=== PATIENT | female | born 1950 | race Caucasian/White ===

== ENCOUNTER 2017-02-20 11:22 | Inpatient (IN) | payer MEDICARE, OTHER ==
[~2017-02-20] VITALS: Ht 152.4 cm; Wt 64.0 kg
[~2017-02-20 11:22] MED LIST: ALPRAZOLAM ER0.5 MG PO; ATENOLOL50 MG PO; CIPROFLOXACIN500 M1 PO; CLONIDINE0.1 MG PO; DEPO-MEDROL40 MG/ML IJ; DOXYCYC MONO100 M1 PO; DULERA1 AE1 IN; LISINOPRIL20 M1 PO; LORTAB 5-325 MG1 TAB PO; MEDDOSEPAK PO; MELOXICAM15 MG PO; METRONIDAZOL500 MG PO; NEURONTIN300 MG PO; OXYCODONE5 M1 PO; PROTONIX40 MG PO; VITAMIN B-12100 MCG PO; VITAMIN D400 UNI1 PO
[2017-02-20 11:40] VITALS: BP 93/58
[2017-02-20 13:47] LABS: HEMATOCRIT 27.8 % (37.0-47.0); HEMOGLOBIN 9.8 g/dl (12.0-16.0); MEAN CELL VOLUME 94.2 fL CALC (80.0-100.0); MEAN CORPUSCULAR HGB 33.2 pG CALC (26.0-32.0); MEAN CORPUSCULAR HGB CONC 35.3 g/L CALC (32.0-36.0); RED BLOOD COUNT 2.95 mill/uL (4.20-5.60); RED CELL DISTRI WIDTH 16.1 % (11.5-15.5)
[2017-02-20 13:56] LABS: ALBUMIN 3.1 g/dL (3.2-5.0); ALKALINE PHOSPHATASE 67 u/l (38-126); ANION GAP 18 (6-22 (CALC)); BILIRUBIN, TOTAL 0.9 mg/dL (0.0-1.4); BUN 25 mg/dL (8-23); BUN/CREATININE RATIO 26 (12-20 (CALC)); CALCIUM 8.7 mg/dL (8.4-10.2); CARBON DIOXIDE 26 mmol/l (22-30); CHLORIDE 85 mmol/l (95-108); GFR 55 ML/MIN (>=60 (CALC)); GFR FOR AFR.AMER. > 60 ML/MIN (>=60 (CALC)); GLUCOSE 122 mg/dL (82-115); POTASSIUM 4.6 mmol/l (3.5-5.1); SGOT/AST 22 u/l (9-36); SGPT/ALT 32 u/l (11-66); SODIUM 123 mmol/l (137-146); TOTAL PROTEIN 6.1 g/dL (6.3-8.2)
[2017-02-20 15:41] VITALS: BP 99/51
[2017-02-20 19:05] VITALS: BP 95/61
[2017-02-21] VITALS (15 sets, daily range): BP systolic 81–135; BP diastolic 48–78
[2017-02-21 06:23] LABS: HEMATOCRIT 24.2 % (37.0-47.0); HEMOGLOBIN 8.6 g/dl (12.0-16.0); IMMATURE GRANULOCYTES 1.3 % (0.0-1.0); MEAN CELL VOLUME 93.1 fL CALC (80.0-100.0); MEAN CORPUSCULAR HGB 33.1 pG CALC (26.0-32.0); MEAN CORPUSCULAR HGB CONC 35.5 g/L CALC (32.0-36.0); RED BLOOD COUNT 2.6 mill/uL (4.20-5.60)
[2017-02-21 06:33] LABS: ALBUMIN 2.2 g/dL (3.2-5.0); ALKALINE PHOSPHATASE 57 u/l (38-126); ANION GAP 13 (6-22 (CALC)); BILIRUBIN, TOTAL 0.6 mg/dL (0.0-1.4); BUN 21 mg/dL (8-23); BUN/CREATININE RATIO 22 (12-20 (CALC)); CALCIUM 8.1 mg/dL (8.4-10.2); CARBON DIOXIDE 27 mmol/l (22-30); CHLORIDE 92 mmol/l (95-108); CREATININE 0.9 mg/dL (0.5-1.0); GFR > 60 ML/MIN (>=60 (CALC)); GFR FOR AFR.AMER. > 60 ML/MIN (>=60 (CALC)); GLUCOSE 113 mg/dL (82-115); POTASSIUM 4.5 mmol/l (3.5-5.1); SGOT/AST 15 u/l (9-36); SGPT/ALT 28 u/l (11-66); SODIUM 127 mmol/l (137-146); TOTAL PROTEIN 4.5 g/dL (6.3-8.2)
[2017-02-21 11:42] LABS: ANION GAP 16 (6-22 (CALC)); BUN 19 mg/dL (8-23); BUN/CREATININE RATIO 23 (12-20 (CALC)); CALCIUM 8.7 mg/dL (8.4-10.2); CARBON DIOXIDE 24 mmol/l (22-30); CHLORIDE 93 mmol/l (95-108); CREATININE 0.8 mg/dL (0.5-1.0); GFR > 60 ML/MIN (>=60 (CALC)); GFR FOR AFR.AMER. > 60 ML/MIN (>=60 (CALC)); GLUCOSE 125 mg/dL (82-115); POTASSIUM 4.2 mmol/l (3.5-5.1); SODIUM 129 mmol/l (137-146)
[2017-02-21 16:17] LABS: ALBUMIN 2.7 g/dL (3.2-5.0); BUN 19 mg/dL (8-23); CALCIUM 8.8 mg/dL (8.4-10.2); CARBON DIOXIDE 22 mmol/l (22-30); CHLORIDE 93 mmol/l (95-108); CREATININE 0.8 mg/dL (0.5-1.0); GFR > 60 ML/MIN (>=60 (CALC)); GFR FOR AFR.AMER. > 60 ML/MIN (>=60 (CALC)); GLUCOSE 127 mg/dL (82-115); POTASSIUM 4.2 mmol/l (3.5-5.1); SODIUM 128 mmol/l (137-146)
[2017-02-21 19:22] LABS: HEMATOCRIT 23.4 % (37.0-47.0); IMMATURE GRANULOCYTES 1.1 % (0.0-1.0); MEAN CELL VOLUME 96.7 fL CALC (80.0-100.0); MEAN CORPUSCULAR HGB 33.1 pG CALC (26.0-32.0); MEAN CORPUSCULAR HGB CONC 34.2 g/L CALC (32.0-36.0); RED BLOOD COUNT 2.42 mill/uL (4.20-5.60); RED CELL DISTRI WIDTH 16.5 % (11.5-15.5)
[2017-02-22] VITALS (13 sets, daily range): BP systolic 81–131; BP diastolic 40–86
[2017-02-22 05:04] LABS: HEMATOCRIT 21.3 % (37.0-47.0); IMMATURE GRANULOCYTES 1.9 % (0.0-1.0); MEAN CELL VOLUME 95.9 fL CALC (80.0-100.0); MEAN CORPUSCULAR HGB 33.3 pG CALC (26.0-32.0); MEAN CORPUSCULAR HGB CONC 34.7 g/L CALC (32.0-36.0); NEUT# 7.17 thou/uL (2.00-7.15); RED BLOOD COUNT 2.22 mill/uL (4.20-5.60); RED CELL DISTRI WIDTH 16.7 % (11.5-15.5)
[2017-02-22 05:08] LABS: HEMOGLOBIN 7.4 g/dl (12.0-16.0)
[2017-02-22 05:23] LABS: ANION GAP 12 (6-22 (CALC)); BUN 10 mg/dL (8-23); BUN/CREATININE RATIO 15 (12-20 (CALC)); CALCIUM 7.6 mg/dL (8.4-10.2); CARBON DIOXIDE 22 mmol/l (22-30); CREATININE 0.7 mg/dL (0.5-1.0); GFR > 60 ML/MIN (>=60 (CALC)); GFR FOR AFR.AMER. > 60 ML/MIN (>=60 (CALC)); GLUCOSE 110 mg/dL (82-115); SODIUM 134 mmol/l (137-146)
[2017-02-22 05:25] LABS: CHLORIDE 104 mmol/l (95-108)
[2017-02-22 08:40] LABS: MAGNESIUM 1.2 mg/dL (1.6-2.3)
[2017-02-22] MEDS ORDERED: LISINOPRIL10 M1 PO (15:06)
[2017-02-22] MEDS ORDERED: PERCOCET 5/321 COMBO PO (15:08)
[2017-02-23] VITALS (12 sets, daily range): BP systolic 75–160; BP diastolic 46–83
[2017-02-23 04:40] LABS: MEAN CELL VOLUME 96.8 fL CALC (80.0-100.0); MEAN CORPUSCULAR HGB 32.3 pG CALC (26.0-32.0); MEAN CORPUSCULAR HGB CONC 33.3 g/L CALC (32.0-36.0); RED BLOOD COUNT 2.48 mill/uL (4.20-5.60); RED CELL DISTRI WIDTH 17.2 % (11.5-15.5)
[2017-02-23 04:53] LABS: ANION GAP 11 (6-22 (CALC)); BUN 7 mg/dL (8-23); BUN/CREATININE RATIO 10 (12-20 (CALC)); CALCIUM 7.7 mg/dL (8.4-10.2); CARBON DIOXIDE 20 mmol/l (22-30); CHLORIDE 106 mmol/l (95-108); CREATININE 0.7 mg/dL (0.5-1.0); GFR > 60 ML/MIN (>=60 (CALC)); GFR FOR AFR.AMER. > 60 ML/MIN (>=60 (CALC)); GLUCOSE 104 mg/dL (82-115); MAGNESIUM 1.2 mg/dL (1.6-2.3); POTASSIUM 3.9 mmol/l (3.5-5.1); SODIUM 134 mmol/l (137-146)
[2017-02-24 00:07] VITALS: BP 128/75
[2017-02-24 05:30] VITALS: BP 137/81
[2017-02-24 07:07] LABS: HEMATOCRIT 25.3 % (37.0-47.0); HEMOGLOBIN 8.8 g/dl (12.0-16.0); IMMATURE GRANULOCYTES 2.4 % (0.0-1.0); MEAN CELL VOLUME 95.8 fL CALC (80.0-100.0); MEAN CORPUSCULAR HGB 33.3 pG CALC (26.0-32.0); MEAN CORPUSCULAR HGB CONC 34.8 g/L CALC (32.0-36.0); NEUT# 7.93 thou/uL (2.00-7.15); RED BLOOD COUNT 2.64 mill/uL (4.20-5.60); RED CELL DISTRI WIDTH 16.9 % (11.5-15.5)
[2017-02-24 07:33] LABS: ANION GAP 13 (6-22 (CALC)); BUN 6 mg/dL (8-23); BUN/CREATININE RATIO 9 (12-20 (CALC)); CALCIUM 8.1 mg/dL (8.4-10.2); CARBON DIOXIDE 20 mmol/l (22-30); CHLORIDE 107 mmol/l (95-108); CREATININE 0.7 mg/dL (0.5-1.0); GFR > 60 ML/MIN (>=60 (CALC)); GFR FOR AFR.AMER. > 60 ML/MIN (>=60 (CALC)); GLUCOSE 115 mg/dL (82-115); POTASSIUM 3.9 mmol/l (3.5-5.1); SODIUM 136 mmol/l (137-146)
[2017-02-24 11:20] VITALS: BP 147/79
[2017-02-24 15:05] VITALS: BP 159/65
[2017-02-24 18:59] VITALS: BP 164/79
[2017-02-24 23:51] VITALS: BP 136/74
[2017-02-25 05:24] VITALS: BP 134/70
[2017-02-25 05:48] LABS: HEMATOCRIT 24.3 % (37.0-47.0); HEMOGLOBIN 8.4 g/dl (12.0-16.0); IMMATURE GRANULOCYTES 1.7 % (0.0-1.0); MEAN CELL VOLUME 94.2 fL CALC (80.0-100.0); MEAN CORPUSCULAR HGB 32.6 pG CALC (26.0-32.0); MEAN CORPUSCULAR HGB CONC 34.6 g/L CALC (32.0-36.0); NEUT# 9.63 thou/uL (2.00-7.15); RED BLOOD COUNT 2.58 mill/uL (4.20-5.60); RED CELL DISTRI WIDTH 16.8 % (11.5-15.5)
[2017-02-25 06:16] LABS: ANION GAP 12 (6-22 (CALC)); BUN 6 mg/dL (8-23); BUN/CREATININE RATIO 9 (12-20 (CALC)); CALCIUM 8.1 mg/dL (8.4-10.2); CARBON DIOXIDE 24 mmol/l (22-30); CHLORIDE 102 mmol/l (95-108); CREATININE 0.7 mg/dL (0.5-1.0); GFR > 60 ML/MIN (>=60 (CALC)); GFR FOR AFR.AMER. > 60 ML/MIN (>=60 (CALC)); GLUCOSE 120 mg/dL (82-115); MAGNESIUM 1.2 mg/dL (1.6-2.3); POTASSIUM 3.6 mmol/l (3.5-5.1); SODIUM 135 mmol/l (137-146)
[2017-02-25 07:45] VITALS: BP 141/82
[2017-02-25 11:10] VITALS: BP 129/75
[2017-02-25 15:51] VITALS: BP 145/77
[2017-02-25 19:00] VITALS: BP 179/89
[2017-02-25 20:36] LABS: URINE BILIRUBIN - DIPSTICK NEGATIVE (NEGATIVE); URINE BLOOD DIPSTICK TRACE-INTACT (NEGATIVE); URINE COLOR YELLOW; URINE GLUCOSE - DIPSTICK NEGATIVE (NEGATIVE); URINE KETONE NEGATIVE (NEGATIVE); URINE LEUK ESTERASE NEGATIVE (NEGATIVE); URINE NITRITE - DIPSTICK NEGATIVE (Negative); URINE PROTEIN - DIPSTICK NEGATIVE (NEG-TRACE); URINE SPECIFIC GRAVITY 1.015; URINE UROBILINOGEN - DIPSTICK 0.2 E.U./dL (0.2)
[2017-02-25 20:37] LABS: URINE CLARITY CLEAR
[2017-02-26 00:53] VITALS: BP 166/69
[2017-02-26 04:49] VITALS: BP 157/90
[2017-02-26 07:55] VITALS: BP 157/74
[2017-02-26 11:00] VITALS: BP 126/71
[2017-02-26] MEDS ORDERED: ROCEPHIN 2 GM2 GM IV (14:04)
[2017-02-26] MEDS ORDERED: PROTONIX40 M2 PO (14:04)
[2017-02-26] MEDS ORDERED: LASIX 20 MG TAB20 MG PO (14:04)
[2017-02-26] MEDS ORDERED: PERCOCET 5/321 COMBO PO (14:04)
[2017-02-26] MEDS ORDERED: FLORASTOR250 M1 PO (14:04)
[2017-02-26 15:20] VITALS: BP 147/72
[2017-02-27 04:45] VITALS: BP 157/79
[2017-02-27 06:27] LABS: HEMATOCRIT 25.2 % (37.0-47.0); MEAN CELL VOLUME 91.3 fL CALC (80.0-100.0); MEAN CORPUSCULAR HGB 32.6 pG CALC (26.0-32.0); MEAN CORPUSCULAR HGB CONC 35.7 g/L CALC (32.0-36.0); RED BLOOD COUNT 2.76 mill/uL (4.20-5.60); RED CELL DISTRI WIDTH 16.7 % (11.5-15.5)
[2017-02-27 06:46] LABS: ANION GAP 11 (6-22 (CALC)); BUN 6 mg/dL (8-23); BUN/CREATININE RATIO 11 (12-20 (CALC)); CALCIUM 8.3 mg/dL (8.4-10.2); CARBON DIOXIDE 30 mmol/l (22-30); CHLORIDE 98 mmol/l (95-108); CREATININE 0.6 mg/dL (0.5-1.0); GFR > 60 ML/MIN (>=60 (CALC)); GFR FOR AFR.AMER. > 60 ML/MIN (>=60 (CALC)); GLUCOSE 108 mg/dL (82-115); MAGNESIUM 1.8 mg/dL (1.6-2.3); POTASSIUM 3.3 mmol/l (3.5-5.1); SODIUM 136 mmol/l (137-146)
== END 2017-02-27 07:10 | disposition home health service (06) | DRG 908 ==
LOC: MS2 11:22 → ICU 11:22 → MS2 02-21 15:28 → ICU 02-21 15:28 → MS2 02-23 13:01 → ICU 02-23 13:16 → MS2 02-23 13:16
PROVIDERS: Internal Medicine; Nurse Practitioner Family; ADMIT Surgery; ATTEND Internal Medicine
PROC: 0WPF0JZ Removal of Synthetic Substitute from Abdominal Wall, Open Approach (ICD-10-PCS; principal; 2017-02-21)
PROC: 02HV33Z Insertion of Infusion Device into Superior Vena Cava, Percutaneous Approach (ICD-10-PCS; 2017-02-25)
PROC: B518ZZA Fluoroscopy of Superior Vena Cava, Guidance (ICD-10-PCS; 2017-02-25)
DX: T81.31XA Disruption of external operation (surgical) wound, not elsewhere classified, initial encounter (principal); T85.79XA Infection and inflammatory reaction due to other internal prosthetic devices, implants and grafts, initial encounter; I95.9 Hypotension, unspecified; E87.1 Hypo-osmolality and hyponatremia; E87.70 Fluid overload, unspecified; D62 Acute posthemorrhagic anemia; E83.42 Hypomagnesemia; I10 Essential (primary) hypertension; J44.9 Chronic obstructive pulmonary disease, unspecified; R00.0 Tachycardia, unspecified; F17.210 Nicotine dependence, cigarettes, uncomplicated; E86.1 Hypovolemia; Y83.2 Surgical operation with anastomosis, bypass or graft as the cause of abnormal reaction of the patient, or of later complication, without mention of misadventure at the time of the procedure; Z87.11 Personal history of peptic ulcer disease
CPT/HCPCS: J1650; J3475; Q9967; S0164

== ENCOUNTER 2017-02-28 18:03 | Observation (INO) | payer MEDICARE, OTHER ==
[~2017-02-28] VITALS: Ht 152.4 cm; Wt 56.5 kg
[~2017-02-28 18:03] MED LIST changes: +FLORASTOR250 M1 PO; +LASIX 20 MG TAB20 MG PO; +LISINOPRIL10 M1 PO; +PERCOCET 5/321 COMBO PO; +PROTONIX40 M2 PO; +ROCEPHIN 2 GM2 GM IV
--- NOTE | 2017-02-28 18:16 | NUR ---
PT TO ROOM PER W/C
--- NOTE | 2017-02-28 18:30 | NUR ---
INTRODUCED SELF TO PT. PT REPORTS SOB AND EDEMA STARTING 2 DAYS PRIOR. PATIENT IS ON HOME ABX FOR INFECTED HERNIA REPAIR. 2 CHRISTIANO DRAINS NOTED, MINIMAL WHITE DRAINAGE NOTED IN DRAIN. 3+ BILATERAL LEG AND FEET EDEMA NOTED. LS COURSE WITH WHEEZES NOTED BILATERALY. MD AT BEDSIDE. PATIENT UNSURE OF WHAT HOME ABX SHE IS TAKING. DOUBLE LUMEN PICC NOTED TO THE RIGHT AC GOOD BLOOD RETURN NOTED. LABS COLLECTED. PATIENT AWARE OF PLAN OF CARE AND WAIT TIME. CALL ERVIN WITHINR REACH, WILL CONTINUE TO MONITOR.
[2017-02-28 18:48] LABS: HEMATOCRIT 27.9 % (37.0-47.0); HEMOGLOBIN 9.4 g/dl (12.0-16.0); IMMATURE GRANULOCYTES 1.2 % (0.0-1.0); MEAN CELL VOLUME 96.5 fL CALC (80.0-100.0); MEAN CORPUSCULAR HGB 32.5 pG CALC (26.0-32.0); MEAN CORPUSCULAR HGB CONC 33.7 g/L CALC (32.0-36.0); NEUT# 8.2 thou/uL (2.00-7.15); RED BLOOD COUNT 2.89 mill/uL (4.20-5.60); RED CELL DISTRI WIDTH 17.9 % (11.5-15.5)
--- NOTE | 2017-02-28 18:55 | NUR ---
REPORT GIVEN TO ANI SANTOYO.
--- NOTE | 2017-02-28 19:00 | NUR ---
RECEIVED REPORT FROM KATLYN LAW. IN ROOM INTRODUCED SELF TO PT. NO C/O AT THIS TIME.
[2017-02-28 19:02] LABS: ALBUMIN 3.2 g/dL (3.2-5.0); ALKALINE PHOSPHATASE 62 u/l (38-126); ANION GAP 18 (6-22 (CALC)); BILIRUBIN, TOTAL 0.7 mg/dL (0.0-1.4); BUN 9 mg/dL (8-23); BUN/CREATININE RATIO 14 (12-20 (CALC)); CALCIUM 8.8 mg/dL (8.4-10.2); CARBON DIOXIDE 28 mmol/l (22-30); CHLORIDE 96 mmol/l (95-108); CREATININE 0.6 mg/dL (0.5-1.0); GFR > 60 ML/MIN (>=60 (CALC)); GFR FOR AFR.AMER. > 60 ML/MIN (>=60 (CALC)); GLUCOSE 108 mg/dL (82-115); POTASSIUM 4.2 mmol/l (3.5-5.1); SGOT/AST 29 u/l (9-36); SGPT/ALT 28 u/l (11-66); SODIUM 137 mmol/l (137-146); TOTAL PROTEIN 6.2 g/dL (6.3-8.2)
--- NOTE | 2017-02-28 19:06 | NUR ---
IV LASIX GIVEN PER MD ORDER.
[2017-02-28 19:08] LABS: INTERNATIONAL NORMALIZED RATIO 1.1 RATIO (0.7-1.3); PROTHROMBIN TIME 11.9 SECONDS (9.0-12.5)
[2017-02-28 19:14] LABS: MYOGLOBIN 122 ng/mL (0 - 62)
--- NOTE | 2017-02-28 19:15 | NUR ---
pt. has 2 andie's that are not compressed. pt. refused to let me compress them stating. they aren't suppose to be compressed.
--- NOTE | 2017-02-28 20:06 | NUR ---
OOB TO BSC CHIAR, VOIDING QS GINNA URINE. NO C/O PAIN OR DISCOMFORT OFFERED.
[2017-02-28 20:08] LABS: URINE BILIRUBIN - DIPSTICK NEGATIVE (NEGATIVE); URINE BLOOD DIPSTICK NEGATIVE (NEGATIVE); URINE COLOR YELLOW; URINE GLUCOSE - DIPSTICK NEGATIVE (NEGATIVE); URINE KETONE NEGATIVE (NEGATIVE); URINE LEUK ESTERASE NEGATIVE (NEGATIVE); URINE NITRITE - DIPSTICK NEGATIVE (Negative); URINE PH 5.5 (4.5-8.0); URINE PROTEIN - DIPSTICK NEGATIVE (NEG-TRACE); URINE UROBILINOGEN - DIPSTICK 0.2 E.U./dL (0.2)
[2017-02-28 20:17] LABS: URINE CLARITY CLEAR
--- NOTE | 2017-02-28 21:06 | NUR ---
IN ROOM TO DISCUSS CLINICAL FINDINGS WITH PT. AND ALSO MAKE HER AWARE OF ADMISSION.
--- NOTE | 2017-02-28 22:15 | NUR ---
REPORT GIVEN TO MARIA ISABEL WATTERS.
[2017-02-28 22:30] VITALS: BP 153/80
--- NOTE | 2017-02-28 22:30 | NUR ---
pt. [place] [facility] [place], no c/o.
--- NOTE | 2017-02-28 22:30 | NUR ---
RECEIVED FROM ER VIA STRETCHER ACCOMPANIED BY DENISE LAW, OUT OF STRETCHER TO BATHROOM WITH STEADY GAIT STAFF AT PT SIDE. A/O X3, RESPIRATIONS EVEN AND UNLABORED, LUNG SOUNDS WHEEZY, VOIDING CLEAR YELLOW URINE THEN BACK TO BED. DUBLE LUMEN PICC LINE TO VALENTINE. ABDOMINAL DRESSING REMOVED, MIDLINE INCISION MEASURING 9INCHES LONG WITH SUTURES, PURULENT DRAINING NOTICED WITH SOME UNDERMINING, PICTURE TAKEN AND PLACED ON CHART, COVERED WITH DRY DRESSING. TWO CHRISTIANO DRAINS #1 TO RLQ, #2 TO LLQ, DRAINING WHITE LIQUID, TEACHING DONE WITH PT REGARDING SUCTION OF THE CHRISTIANO, VOICES UNDERSTANDING. C/O ABDOMINAL PAIN /10 MEDICATED WITH PERCOCET, SONATA ALSO GIVEN PER PT REQUEST. ORIENTED TO BED CONTROLS AND CALL LIGHT.
[2017-03-01 03:55] VITALS: BP 150/61
--- NOTE | 2017-03-01 04:08 | NUR ---
OOB TO BATHROOM USING WALKER, C/O ABDOMINAL PAIN 10/19, MEDICATED WITH PERCOCET.
[2017-03-01 05:38] LABS: ANION GAP 19 (6-22 (CALC)); BUN 10 mg/dL (8-23); BUN/CREATININE RATIO 15 (12-20 (CALC)); CALCIUM 8.7 mg/dL (8.4-10.2); CARBON DIOXIDE 27 mmol/l (22-30); CHLORIDE 93 mmol/l (95-108); CREATININE 0.6 mg/dL (0.5-1.0); GFR > 60 ML/MIN (>=60 (CALC)); GFR FOR AFR.AMER. > 60 ML/MIN (>=60 (CALC)); GLUCOSE 122 mg/dL (82-115); MAGNESIUM 1.2 mg/dL (1.6-2.3); POTASSIUM 4.6 mmol/l (3.5-5.1); SODIUM 134 mmol/l (137-146)
--- NOTE | 2017-03-01 07:25 | NUR ---
PT.IN BED, AWAKENED TO US ENTERING ROOM, BS REPORT RECEIVED FROM NIGHT NURSE. DENIES ANY NEEDS AT THIS TIME, CALL LIGHT W/IN REACH
[2017-03-01 07:37] VITALS: BP 144/78
--- NOTE | 2017-03-01 10:35 | NUR ---
PT. IN BED WATCHING TV AND TALKING ON PHONE. PT.MEDICATED W/MORNING MEDICATIONS AND FOR PAIN 10/19. PT.SOLU-MEDROL, ANTIBIOTIC THERAPAY AND MAGNESIUM SULF. WERE HELD DUE TO PLACEMENT CONFIRMATION XRAY NEEDED FOR PICC. PT.REQUESTED RESPIRATORY TREATMENT/DOES NOT SOUND DISTRESSED AT THIS TIME, RESPIRATORY HAS BEEN NOTIFIED AT THIS TIME. PT.PROVIDED W/KLEENEX REQUESTED. DENIES ANY OTHER NEEDS AT THIS TIME, CALL LIGHT W/IN REACH
[2017-03-01 10:55] VITALS: BP 137/83
--- NOTE | 2017-03-01 11:36 | NUR ---
XRAY CALLED VINNY REPORTING FOR LAVINIA STATING THAT XRAY HAD BEEN COMPLETED TO CHECK FOR PLACEMENT OF PICC AND REPORT SHOWS TIP AT [facility]. REPORTS THAT IT IS USABLE W/THIS PLACEMENT.
--- NOTE | 2017-03-01 14:35 | NUR ---
PT.CALLED TO REPORT THAT HER RIGHT CHRISTIANO DRAIN HAS "COME OUT." UPON ENTERING ROOM, PT.IS SITTING ON SIDE OF BED HOLDING DRAIN TUBING IN HAND. TUBING IS COMPLETELY OUT AND BULB EMPTIED OF 5CC OF DRAINAGE. NO DRAINAGE IN LEFT DRAIN BULB. DR. TRAN HAS BEEN NOTIFIED AND REPORTED THAT HE REPORTED DRAIN DISLODGE TO .
[2017-03-01 15:05] VITALS: BP 131/64
--- NOTE | 2017-03-01 16:09 | NUR ---
Attempted to speak to patient about current medications and side-effects. Patient interrupted while trying to go over side-effects and stated that she has heard this before as she was discharged the day before and is back again to [facility]. Patient asked if she needs to continue taking the medications she was discharged with yesterday. Informed patient that all her home medications are being continued at the hospital and upon discarge the doctor may change or discontinue some of her medications. I told her if there were any changes, I will be back tomorrow to go over them with her. She said as long as the doctor gives her a script, I do not need to come back to talk to her.
[2017-03-01 19:30] VITALS: BP 132/65
--- NOTE | 2017-03-01 19:40 | NUR ---
pt awake in bed; no distress noted; assessment completed at this time; pt alert and oriented; admits to abd pain/ medicated as per orders; no n/v noted; resp even and unlabored; pt with complaints of sob/no resp distress noted; lungs clear/diminished bases; skin color wnl; o2 per nc; hr reg; wk pedal pulses; 3+ edema noted to ble; tele monitor intact; abd soft with bs present; no bm noted per financial underwriter; pt admits to voiding without complication; no urine to inspect at this time; dual lumen picc line intact to janet; no redness or edema ntoed at site; picc dressing cdi; dressing noted intact to abd incision and andie sites; scant serous shadowing noted to dressing; andie intact to left abd with scant thick pale pink drainage; bulb charged but will not hold suction; discoloration noted to ble/feet; plan of care/pm meds explained; call light within reach; will continue to monitor
--- NOTE | 2017-03-01 20:26 | NUR ---
awake in bed; admits to pain relief; pm meds explained; pt medicated per orders; andie stripped; andie drain noted to NOT hold suction; bulb reinforced with no change in suction; scant amount of thick pale pink drainage noted; will continue to monitor
--- NOTE | 2017-03-01 23:38 | NUR ---
awake; complaints of abd pain; medicated with percocet as per orders; dressing to andie site reinfornced d/t leakage around insertion site; picc intact; tele monitor inplace; call light within reach; will continue to monitor
--- NOTE | 2017-03-02 00:10 | NUR ---
awake in bed; offers no complaints/needs; lungs noted with exp wheezing; call light within reach; will continue to monitor
[2017-03-02 00:14] VITALS: BP 108/62
--- NOTE | 2017-03-02 03:27 | NUR ---
awake; assisted to bathroom; pt with complaints of itching around abd dressing; no redness or rash noted; complaints of abd pain; will medicate as per orders; will continue to monitor
--- NOTE | 2017-03-02 03:53 | NUR ---
awake in bed; repositioned per staff for comfort; no distress noted; o2 per nc; picc intact; CHRISTIANO emptied for 4cc; no odor noted to CHRISTIANO drainage; dressings cdi to abd; call light within reach; will continue to monitor
[2017-03-02 04:00] VITALS: BP 131/66
--- NOTE | 2017-03-02 04:44 | NUR ---
am labs per picc; flushed and heparinized per protocol
--- NOTE | 2017-03-02 05:52 | NUR ---
pt awake sitting on side of bed receiving neb tx; no distress noted; pt offers no complaints; iv intact; o2 per nc; tele monitor in place; bed in lowest position; call light within reach
[2017-03-02 06:08] LABS: HEMATOCRIT 22.2 % (37.0-47.0); HEMOGLOBIN 7.9 g/dl (12.0-16.0); MEAN CELL VOLUME 93.3 fL CALC (80.0-100.0); MEAN CORPUSCULAR HGB 33.2 pG CALC (26.0-32.0); MEAN CORPUSCULAR HGB CONC 35.6 g/L CALC (32.0-36.0); RED BLOOD COUNT 2.38 mill/uL (4.20-5.60); RED CELL DISTRI WIDTH 17.9 % (11.5-15.5)
[2017-03-02 06:24] LABS: ANION GAP 12 (6-22 (CALC)); BUN 14 mg/dL (8-23); BUN/CREATININE RATIO 22 (12-20 (CALC)); CALCIUM 8.2 mg/dL (8.4-10.2); CARBON DIOXIDE 33 mmol/l (22-30); CHLORIDE 89 mmol/l (95-108); CREATININE 0.7 mg/dL (0.5-1.0); GFR > 60 ML/MIN (>=60 (CALC)); GFR FOR AFR.AMER. > 60 ML/MIN (>=60 (CALC)); GLUCOSE 145 mg/dL (82-115); SODIUM 131 mmol/l (137-146)
--- NOTE | 2017-03-02 07:15 | NUR ---
BEDSIDE REPORT RECEIVED FROM NIGHT NURSE, PT.IS UPRIGHT IN BED WATCHING TV. SHE IS REQUESTING A PAIN PILL AT THIS TIME, BUT IT IS TOO SOON TO PULL IT AT THIS TIME. I WILL FOLLOW-UP WITH PAIN MEDICATION WHEN AVAILABLE. CALL LIGHT IS W/IN REACH AND PT IS ADVISED TO CALL IF ANY NEEDS ARISE.
[2017-03-02 08:01] VITALS: BP 123/70
--- NOTE | 2017-03-02 08:10 | NUR ---
PT.MEDICATED W/MORNING MEDICATIONS AND IV ANTIBIOTIC THERAPY ADMINISTERD AT THIS TIME. PT.IS UPRIGHT IN RECLINER W/FEET ELEVATED. SHE REPORTS THAT HER LOWER EXTREMETY EDEMA IS MUCH IMPROVED IF SHE KEEPS HER FEET ELEVATED. PT.MEDICATED W/LASIX AND SOLU-MEDROL AT THIS TIME ASLO. CALL LIGHT IS W/IN REACH AND PT.HAS BEEN INSRUCTED TO CALL FOR ASSISTANCE NEEDED.
[2017-03-02 11:05] VITALS: BP 135/68
[2017-03-02] MEDS ORDERED: IPRATROPIU0.5 MG/3 M NEB (11:42)
[2017-03-02] MEDS ORDERED: PREDNISONE10 MG PO (11:42)
[2017-03-02] MEDS ORDERED: LASIX 40 MG TAB40 MG PO (11:42)
[2017-03-02] MEDS ORDERED: KLOR-CON M2020 MEQ PO (11:52)
[2017-03-02] MEDS ORDERED: MAGNESIUM OXID400 M1 PO (11:52)
--- NOTE | 2017-03-02 12:01 | NUR ---
UPON ENTERING ROOM PT.IS IN RECLINER "READY TO MOVE," PT.HAS REQUESTED PAIN MEDICATION TWICE PREVIOUSLY SO I BROUGHT HER PERCOCET. UPON AMBULATING PT.STARTS MOVING ITEMS FROM TABLE TO BED, SHE WALKS AROUND TO THE OTHER SIDE OF THE BED AND MOVES BROWN END TABLE CLOSER TO BED. I HAVE OFFERED ASSISTANCE AND SHE STATES "NO I WANT TO DO IT." PT.THEN REPORTS HER PAIN LEVEL AT A 7/10. APPEARS TO BE 3/10. I ADVISE PT.TO LIE FLAT ON THE BED FOR WOUND CARE DRESSING CHANGE. PT.MEDICATED FOR PAIN AND DRESSING CHANGE PERFORMED. PICTURES IN CHART. R.CHRISTIANO DRAIN IS OUT, SITE APPEARS HEALTHY, MODERATE AMOUNT OF DRAINAGE FROM SITE APPEARS ON DRESSING WHEN CHANGED. L.CHRISTIANO DRAIN IS STILL INTACT W/MINIMAL DRAINAGE 1CC IN BULB, LIGHT DRAINAGE AT SITE APPEARED ON DRESSING AT DRESSING CHANGE. PT.TOLERATED DRESSING CHANGE WELL AND I BACK IN RECLINER WORKING ON [employer] PUZZLE.
--- NOTE | 2017-03-02 14:19 | NUR ---
PT.DISCHARGED FROM UNIT IN GOOD CONDITION VIA WC ACCOMPANIED BY .
== END 2017-03-02 14:19 | disposition home health service (06) ==
LOC: ED 18:03 → ED-I 21:05 → ED 21:28 → MS2 21:29
PROVIDERS: Emergency Medicine; Internal Medicine; ADMIT Internal Medicine; ATTEND Internal Medicine
DX: J44.1 Chronic obstructive pulmonary disease with (acute) exacerbation (principal); E87.70 Fluid overload, unspecified; J96.00 Acute respiratory failure, unspecified whether with hypoxia or hypercapnia; I10 Essential (primary) hypertension; F17.210 Nicotine dependence, cigarettes, uncomplicated; T85.79XA Infection and inflammatory reaction due to other internal prosthetic devices, implants and grafts, initial encounter; E83.42 Hypomagnesemia; D62 Acute posthemorrhagic anemia; F10.20 Alcohol dependence, uncomplicated; Y83.2 Surgical operation with anastomosis, bypass or graft as the cause of abnormal reaction of the patient, or of later complication, without mention of misadventure at the time of the procedure; Z87.11 Personal history of peptic ulcer disease
CPT/HCPCS: J1650; J3475

== ENCOUNTER 2017-04-11 18:42 | Emergency (ER) | payer MEDICARE, OTHER ==
[~2017-04-11] VITALS: Ht 152.4 cm; Wt 50.0 kg
[~2017-04-11 18:42] MED LIST changes: +IPRATROPIU0.5 MG/3 M NEB; +KLOR-CON M2020 MEQ PO; +LASIX 40 MG TAB40 MG PO; +MAGNESIUM OXID400 M1 PO; +PREDNISONE10 MG PO
[2017-04-11 19:28] LABS: HEMATOCRIT 33.6 % (37.0-47.0); HEMOGLOBIN 11.2 g/dl (12.0-16.0); IMMATURE GRANULOCYTES 0.8 % (0.0-1.0); MEAN CELL VOLUME 95.5 fL CALC (80.0-100.0); MEAN CORPUSCULAR HGB 31.8 pG CALC (26.0-32.0); MEAN CORPUSCULAR HGB CONC 33.3 g/L CALC (32.0-36.0); NEUT# 5.95 thou/uL (2.00-7.15); RED BLOOD COUNT 3.52 mill/uL (4.20-5.60); RED CELL DISTRI WIDTH 15.9 % (11.5-15.5)
[2017-04-11 19:47] LABS: ALBUMIN 3.7 g/dL (3.2-5.0); ALKALINE PHOSPHATASE 97 u/l (38-126); ANION GAP 18 (6-22 (CALC)); BILIRUBIN, TOTAL 0.8 mg/dL (0.0-1.4); BUN 24 mg/dL (8-23); BUN/CREATININE RATIO 32 (12-20 (CALC)); CALCIUM 10.2 mg/dL (8.4-10.2); CARBON DIOXIDE 25 mmol/l (22-30); CHLORIDE 91 mmol/l (95-108); CREATININE 0.7 mg/dL (0.5-1.0); GFR > 60 ML/MIN (>=60 (CALC)); GFR FOR AFR.AMER. > 60 ML/MIN (>=60 (CALC)); GLUCOSE 116 mg/dL (82-115); POTASSIUM 5.1 mmol/l (3.5-5.1); SGOT/AST 26 u/l (9-36); SGPT/ALT 27 u/l (11-66); SODIUM 129 mmol/l (137-146); TOTAL PROTEIN 6.3 g/dL (6.3-8.2)
[2017-04-11 19:56] LABS: URINE BILIRUBIN - DIPSTICK NEGATIVE (NEGATIVE); URINE BLOOD DIPSTICK NEGATIVE (NEGATIVE); URINE COLOR YELLOW; URINE GLUCOSE - DIPSTICK NEGATIVE (NEGATIVE); URINE KETONE NEGATIVE (NEGATIVE); URINE LEUK ESTERASE NEGATIVE (NEGATIVE); URINE NITRITE - DIPSTICK NEGATIVE (Negative); URINE PROTEIN - DIPSTICK NEGATIVE (NEG-TRACE); URINE UROBILINOGEN - DIPSTICK 0.2 E.U./dL (0.2)
[2017-04-11 19:59] LABS: MYOGLOBIN 88 ng/mL (0 - 62)
[2017-04-11 20:01] LABS: URINE CLARITY CLEAR
[2017-04-11 20:10] LABS: ACT PARTIAL THROMBO TIME 28.4 SECONDS (20.0-32.5); PROTHROMBIN TIME 11.2 SECONDS (9.0-12.5)
[2017-04-11 20:11] LABS: INFLUENZA A NONE DETECTED (NONE DETECT); INFLUENZA B NONE DETECTED (NONE DETECT)
[2017-04-11 21:58] VITALS: BP 166/72
== END 2017-04-11 21:59 | disposition short-term general hospital (02) ==
LOC: ED 18:42
PROVIDERS: Emergency Medicine
DX: J44.1 Chronic obstructive pulmonary disease with (acute) exacerbation (principal); R06.03 Acute respiratory distress; R00.0 Tachycardia, unspecified; R06.02 Shortness of breath; F17.210 Nicotine dependence, cigarettes, uncomplicated; Z72.89 Other problems related to lifestyle; Z98.890 Other specified postprocedural states

== ENCOUNTER 2017-05-26 06:11 | Day surgery (SDC) | payer MEDICARE, OTHER ==
[~2017-05-26] VITALS: Ht 152.4 cm; Wt 45.8 kg
[~2017-05-26 06:11] MED LIST changes: +BUMETANIDE0.5 MG PO; +DUONEB IN; +KLOR-CON 1010 MEQ PO; +MAG OXIDE400 MG PO; +MULTIVITAMIN GUMMIES PO; +PERCOCET1 TA4 PO; +ULTRAM50 M1 PO; +XOPENEX HF45 MCG/ACT IN
[2017-05-26] MEDS ORDERED: PERCOCET 10/31 COMBO PO (09:38)
[2017-05-26 11:19] VITALS: BP 144/72
== END 2017-05-26 11:05 | disposition home or self-care (01) ==
LOC: ORM 06:11
PROVIDERS: ATTEND Surgery
PROC: 0HR7X74 Replacement of Abdomen Skin with Autologous Tissue Substitute, Partial Thickness, External Approach (ICD-10-PCS; principal; 2017-05-26)
PROC: 0HBHXZZ Excision of Right Upper Leg Skin, External Approach (ICD-10-PCS; 2017-05-26)
DX: T81.89XA Other complications of procedures, not elsewhere classified, initial encounter (principal); Y83.2 Surgical operation with anastomosis, bypass or graft as the cause of abnormal reaction of the patient, or of later complication, without mention of misadventure at the time of the procedure
CPT/HCPCS: A6207

== ENCOUNTER 2017-06-23 06:39 | Day surgery (SDC) | payer MEDICARE, OTHER ==
[~2017-06-23 06:39] MED LIST changes: +PERCOCET 10/31 COMBO PO
[2017-06-23] MEDS ORDERED: DILAUDID2 MG PO (09:25)
[2017-06-23 11:51] VITALS: BP 152/66
== END 2017-06-23 10:15 | disposition home or self-care (01) ==
LOC: ORM 06:39
PROVIDERS: ATTEND Surgery
PROC: 0HR7X74 Replacement of Abdomen Skin with Autologous Tissue Substitute, Partial Thickness, External Approach (ICD-10-PCS; principal; 2017-06-23)
PROC: 0HBJXZZ Excision of Left Upper Leg Skin, External Approach (ICD-10-PCS; 2017-06-23)
DX: T81.89XA Other complications of procedures, not elsewhere classified, initial encounter (principal); Y83.8 Other surgical procedures as the cause of abnormal reaction of the patient, or of later complication, without mention of misadventure at the time of the procedure
CPT/HCPCS: A6207

== ENCOUNTER 2017-07-07 15:08 | Inpatient (IN) | payer MEDICARE, OTHER ==
[2017-07-07] VITALS (12 sets, daily range): BP systolic 142–176; BP diastolic 76–100
[~2017-07-07] VITALS: Ht 152.4 cm; Wt 44.0 kg
[~2017-07-07 15:08] MED LIST changes: +DILAUDID2 MG PO
--- NOTE | 2017-07-07 15:22 | NUR ---
female pt received to ICU bed 8 via wc accompanied by volunteer as direct admit; spouse accompanied pt; admission assessment completed at this time; pt c/c "can't breathe", sent by MD; weight obtained via bed scale; pt appear anxious; pt alert to person and place; confused to time; resp labored; lungs coarse with exp wheeze; moist loose cough noted/ no sputum to inspect at current; skin color wnl; o2 per nc at 2L; pt and spouse admits to home o2 but unsure of liters prescribed; hr reg; st on monitor; edema noted to ble; pedal pulses confirmed via doppler; purple/bruising noted to bilat feet/ toes; abd soft/ tender with bs present; no bm noted per leader writer; no urine to inspect at this time; bsc; #20 started in rac (per pt request) x1 attempt; labs obtained; site flushed and patent; dressing cdi to abd; per pt and spouse, dressing was changed this am by Yohannes; pt refusing to allow staff to remove dressing for observation/pic documentation; dressing also noted to left thigh, secured with ragini bandage; again, pt refusing to allow dressings to be removed; plan of care/ meds explained; pt requires much encouragement and direction to allow staff to perform care; bed alarm active for pt safety; call light within reach; will continue to monitor
--- NOTE | 2017-07-07 16:23 | NUR ---
[facility] nurse Yohannes at bedside attempting to remove dressing/ change dressing; pt continues to refuse; dressings left intact; unable to obtained pic documentation; will continue to monitor
[2017-07-07 16:27] LABS: HEMATOCRIT 37.7 % (37.0-47.0); IMMATURE GRANULOCYTES 0.3 % (0.0-1.0); MEAN CORPUSCULAR HGB 30.1 pG CALC (26.0-32.0); NEUT# 12.91 thou/uL (2.00-7.15); RED BLOOD COUNT 4.38 mill/uL (4.20-5.60); RED CELL DISTRI WIDTH 15.6 % (11.5-15.5)
[2017-07-07] MEDS ORDERED: ESCITALOPRAM OX10 MG PO (16:29)
[2017-07-07 16:30] LABS: HEMOGLOBIN 13.2 g/dl (12.0-16.0); MEAN CELL VOLUME 86.1 fL CALC (80.0-100.0)
[2017-07-07] MEDS ORDERED: PERCOCET1 TA4 PO (16:31)
[2017-07-07] MEDS ORDERED: MAG OXIDE400 MG PO (16:33)
[2017-07-07 16:48] LABS: ALKALINE PHOSPHATASE 99 u/l (38-126); ANION GAP 26 (6-22 (CALC)); BILIRUBIN, TOTAL 1.4 mg/dL (0.0-1.4); BUN 8 mg/dL (8-23); BUN/CREATININE RATIO 13 (12-20 (CALC)); CARBON DIOXIDE 23 mmol/l (22-30); CHLORIDE 85 mmol/l (95-108); CREATININE 0.6 mg/dL (0.5-1.0); GFR > 60 ML/MIN (>=60 (CALC)); GFR FOR AFR.AMER. > 60 ML/MIN (>=60 (CALC)); POTASSIUM 4.1 mmol/l (3.5-5.1); SGOT/AST 27 u/l (9-36); SGPT/ALT 23 u/l (11-66); SODIUM 130 mmol/l (137-146)
[2017-07-07 16:49] LABS: ALBUMIN 4.4 g/dL (3.2-5.0); TOTAL PROTEIN 7.9 g/dL (6.3-8.2)
--- NOTE | 2017-07-07 16:49 | NUR ---
Med rec. was done using medication reconciliation history and a faxed list of Medications from 's office. will bring medication bottles tomorrow.
--- NOTE | 2017-07-07 17:15 | NUR ---
Dr Del Rosario at bedside to assess and discuss plan of care; pt refused to allow MD ro remove dressings; will reassess in am
--- NOTE | 2017-07-07 17:15 | NUR ---
mutiple attempts made by pt to climb out of bed; pt with complaints of pain at iv site; per pt request, iv will be changed; st on monitor; o2 per nc; call light within reach; will continue to monitor
--- NOTE | 2017-07-07 18:01 | NUR ---
pt refusing transport to xray at this time; will medicate with ativan and attempt later as per MD request
--- NOTE | 2017-07-07 18:25 | NUR ---
pt awake; explained importance of cxr; medicated with ativan and libruim as per orders; pt transported to xray dept via wc accompanied by alteration workroom supervisor in stable condition;
--- NOTE | 2017-07-07 18:42 | NUR ---
pt returned to unit in stable condition; monitoring attachements explained and reconnected
--- NOTE | 2017-07-07 18:42 | NUR ---
[facility] called in regards to zosyn order to be verified
--- NOTE | 2017-07-07 19:20 | NUR ---
awakens easily. denies distress. quality assurance monitor body shows sinus tach. #20 rac ns infusing @ 20cchr. refused po intake. has not voided. dsgs to abd & lt thigh cdi. fall precautions cont. instructed about need to complete 2v cxr when xray available. pt verbalized understanding.
--- NOTE | 2017-07-07 19:30 | NUR ---
lab here. blood drawn.
--- NOTE | 2017-07-07 20:45 | NUR ---
to sofiaay per wc accompanied by this technical writer and editor.
--- NOTE | 2017-07-07 20:50 | NUR ---
returned from xray. chelsi well.
--- NOTE | 2017-07-07 20:50 | NUR ---
voided per bsc.
--- NOTE | 2017-07-07 22:30 | NUR ---
voided per bsc.
--- NOTE | 2017-07-07 22:50 | NUR ---
kendy rt notified of order for abgs.
--- NOTE | 2017-07-07 23:00 | NUR ---
rt here. abgs drawn.
[2017-07-08] VITALS (14 sets, daily range): BP systolic 109–158; BP diastolic 56–88
--- NOTE | 2017-07-08 02:00 | NUR ---
up to bsc then back to bed. ativan 0.5mg & librium 25mg po per request.
--- NOTE | 2017-07-08 04:00 | NUR ---
lab here. blood drawn.
[2017-07-08 05:35] LABS: HEMATOCRIT 35.5 % (37.0-47.0); HEMOGLOBIN 12.2 g/dl (12.0-16.0); MEAN CELL VOLUME 87.9 fL CALC (80.0-100.0); MEAN CORPUSCULAR HGB 30.2 pG CALC (26.0-32.0); MEAN CORPUSCULAR HGB CONC 34.4 g/L CALC (32.0-36.0); RED BLOOD COUNT 4.04 mill/uL (4.20-5.60)
[2017-07-08 05:38] LABS: ANION GAP 23 (6-22 (CALC)); BUN 10 mg/dL (8-23); BUN/CREATININE RATIO 16 (12-20 (CALC)); CARBON DIOXIDE 24 mmol/l (22-30); CHLORIDE 89 mmol/l (95-108); CREATININE 0.7 mg/dL (0.5-1.0); GFR > 60 ML/MIN (>=60 (CALC)); GFR FOR AFR.AMER. > 60 ML/MIN (>=60 (CALC)); POTASSIUM 4.6 mmol/l (3.5-5.1); SODIUM 131 mmol/l (137-146)
--- NOTE | 2017-07-08 06:05 | NUR ---
lab results rec'd. dr guo notified.
--- NOTE | 2017-07-08 07:35 | NUR ---
pt awake in bed; no distress noted; assessment completed at this time; pt alert to person and place; confused to month and year; complaints of abd pain rating 4/10; medicated with percocet as per orders; no n/v noted; resp even and unlabored; lungs clear/ diminished bases; skin color wnl; ra; o2 sat 98%; hr reg; strong pulses; trace edema noted; st on monitor; abd soft/tender with bs present; no bm noted per chart writer; pt admits to voiding without difficulty; no urine to inspect at this time; bsc; #20 in rac flushed and patent; no redness or edema noted at site; dressings cdi to abd and left thigh; repositioned; plan of care/ am meds explained; call light within reach; will continue to monitor
--- NOTE | 2017-07-08 08:10 | NUR ---
awake in bed; eating breakfast; admits to feeling so much better today; iv patent; no redness or edema noted at site; st on monitor; call light within reach; will continue to monitor
--- NOTE | 2017-07-08 10:05 | NUR ---
awake in bed; spouse at bedside; pt offers no complaints; st on monitor; iv patent; no redness or edema noted at site; call light within reach; will continue to monitor
--- NOTE | 2017-07-08 11:00 | NUR ---
Dr Del Rosario at bedside; VIDHYA Sheffield LPN at bedside; pt offers no complaints; no distress noted; dressing changed per Dr Del Rosario and Yohannes (as per pt request); dressing removed from left thigh; site left open to air as per MD order; abd dressing changed; site appears healthy; underminig noted; pic obtained; site cover with xerofoam, 4x4 and and pad; secured with paper tape; pt tolerated well; call light within reach; will continue to monitor
--- NOTE | 2017-07-08 12:10 | NUR ---
awake in bed; no distress noted; pt offers no complaints; denies pain; resp even and unlabored; sr on monitor; iv patent; no redness or edema noted at site; ra; call light within reach; will continue to monitor
--- NOTE | 2017-07-08 14:20 | NUR ---
awake; assist to bsc; voiding without complication; iv patent; no redness or edema noted at site; sr on monitor; ra; linens change; assist bath; call light within reach; will continue to monitor
--- NOTE | 2017-07-08 16:04 | NUR ---
pt asleep; no distress noted; resp even and unlabored; iv patent; no redness or edema noted at site; sr on monitor; ra; call light within reach; will continue to monitor
--- NOTE | 2017-07-08 17:29 | NUR ---
PT RESTING SOUNDLY. DID NOT WAKE FOR NEB TX. RN AGREED.
--- NOTE | 2017-07-08 17:54 | NUR ---
asleep; easily aroused; offers no complaints; no distress noted; resp even and unlabored; ra; pt refusing dinner at prsent; meal left at bedside; bed in lowest position; call light within reach
--- NOTE | 2017-07-08 19:30 | NUR ---
PT IN BED A/O X3, RESPIRATIONS EVEN AND UNLABORED ON RA, O2 SAT 98%. DENIES PAIN AT THIS TIME. DRESSING TO ABDOMEN CDI, SKIN GRAFT TO LEFT THIGH ROSAURA. NS INFUSING TO RAC AT KVO. TEMP 97.0, B/P 158/73, HR 84 SR. CALL LIGHT IN REACH, ENCOURAGED TO USE CALL LIGHT FOR ASSISTANCE, WILL CONTINUE TO MONITOR.
--- NOTE | 2017-07-08 21:50 | NUR ---
OOB TO BSC WITH STANDBY ASSISTANCE, VOIDING 50ML CLEAR YELLOW URINE, THEN BACK TO BED. C/O ABDOMINAL AND LEFT SHOULDER PAIN 5/10 PERCOCET PROVIDED. ATIVAN ALSO PROVIDED AT THIS TIME PER PT REQUEST. CALL LIGHT IN REACH.
--- NOTE | 2017-07-08 23:30 | NUR ---
RESTING ON RIGHT SIDE WITH EYES CLOSED, RESPIRATIONS EVEN AND UNLABORED. CALL LIGHT IN REACH.
[2017-07-09] VITALS (11 sets, daily range): BP systolic 107–157; BP diastolic 58–78
--- NOTE | 2017-07-09 02:00 | NUR ---
RESTING WITH EYES CLOSED, RESPIRATIONS EVEN AND UNLABORED, O2 SAT 97%. CALL LIGHT IN REACH.
--- NOTE | 2017-07-09 04:47 | NUR ---
OOB TO BSC VOIDING 100ML CLEAR YELLOW URINE WITH STRONG ODOR. NS INFUSING TO RAC AT 100CC/HR. C/O LEFT SHOULDER AND ABDOMINAL PAIN 5/10, PERCOCET PROVIDED PER PT REQUEST. BACK TO BED, CALL LIGHT IN REACH.
[2017-07-09 05:02] LABS: HEMATOCRIT 31.7 % (37.0-47.0); HEMOGLOBIN 10.6 g/dl (12.0-16.0); MEAN CELL VOLUME 90.1 fL CALC (80.0-100.0); MEAN CORPUSCULAR HGB 30.1 pG CALC (26.0-32.0); MEAN CORPUSCULAR HGB CONC 33.4 g/L CALC (32.0-36.0); RED BLOOD COUNT 3.52 mill/uL (4.20-5.60)
[2017-07-09 05:10] LABS: ANION GAP 17 (6-22 (CALC)); BUN 19 mg/dL (8-23); BUN/CREATININE RATIO 24 (12-20 (CALC)); CARBON DIOXIDE 27 mmol/l (22-30); CHLORIDE 92 mmol/l (95-108); CREATININE 0.8 mg/dL (0.5-1.0); GFR > 60 ML/MIN (>=60 (CALC)); GFR FOR AFR.AMER. > 60 ML/MIN (>=60 (CALC)); POTASSIUM 4.1 mmol/l (3.5-5.1); SODIUM 132 mmol/l (137-146)
[2017-07-09 05:19] LABS: MAGNESIUM 2.2 mg/dL (1.6-2.3)
--- NOTE | 2017-07-09 07:05 | NUR ---
REPORT RECVD FROM MACHINE OPERATOR HOP PICKER. PT SLEEPING IN ER BED. EASILY AROUSED. PT IN STABLE CONDITION.
--- NOTE | 2017-07-09 08:59 | NUR ---
PT WOKEN UP FOR PHONE CALL. ASSESSMENT COMPLETED.
--- NOTE | 2017-07-09 09:05 | NUR ---
RT @BEDSIDE FOR [facility]. PT DENIES PAIN. PT HAS CLEAN DRESSING OVER ABD WOUND, THIGH WOUND OPEN TO AIR- NO S/S OF INFECTION. NO EDEMA. STRONG/EVEN PULSE. ABD SOFT/NONTENDER. ACTIVE BS. LUNG SOUNDS CLEAR, GOOD MOVEMENT. BREATHING IS EVEN/UNLABORED. CARDIAC WNL. A&O TO NAME/PLACE. EYES PERRLA. PT STATES SHE "HAD A HARD NIGHT". 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 STATES SHE HAS HOME HEALTH.
--- NOTE | 2017-07-09 10:22 | NUR ---
GILBERTO FROM CASE MANAGEMENT @ BEDSIDE.
--- NOTE | 2017-07-09 10:48 | NUR ---
DR SILVERMAN @BEDSIDE
--- NOTE | 2017-07-09 10:54 | NUR ---
VERBAL ORDER FROM DR SILVERMAN FOR XEROFORM TO DRY DRESSING CHANGE DAILY.
--- NOTE | 2017-07-09 11:08 | NUR ---
FLU SWAB COLLECTED. LAB @ BEDSIDE FOR DRAW.
[2017-07-09 11:32] LABS: HEMATOCRIT 33.5 % (37.0-47.0); HEMOGLOBIN 11.2 g/dl (12.0-16.0); IMMATURE GRANULOCYTES 0.6 % (0.0-1.0); MEAN CELL VOLUME 90.3 fL CALC (80.0-100.0); MEAN CORPUSCULAR HGB 30.2 pG CALC (26.0-32.0); MEAN CORPUSCULAR HGB CONC 33.4 g/L CALC (32.0-36.0); NEUT# 10.25 thou/uL (2.00-7.15); RED BLOOD COUNT 3.71 mill/uL (4.20-5.60); RED CELL DISTRI WIDTH 15.9 % (11.5-15.5)
[2017-07-09 11:33] LABS: INFLUENZA A NONE DETECTED (NONE DETECT); INFLUENZA B NONE DETECTED (NONE DETECT)
[2017-07-09 11:51] LABS: PROTHROMBIN TIME 10.7 SECONDS (9.0-12.5)
--- NOTE | 2017-07-09 11:51 | NUR ---
PT UP TO CHAIR. EATING LUNCH.
[2017-07-09 11:53] LABS: ALBUMIN 3.6 g/dL (3.2-5.0); ALKALINE PHOSPHATASE 60 u/l (38-126); ANION GAP 18 (6-22 (CALC)); BILIRUBIN, TOTAL 0.5 mg/dL (0.0-1.4); BUN 20 mg/dL (8-23); BUN/CREATININE RATIO 24 (12-20 (CALC)); CARBON DIOXIDE 28 mmol/l (22-30); CHLORIDE 90 mmol/l (95-108); CREATININE 0.8 mg/dL (0.5-1.0); GFR > 60 ML/MIN (>=60 (CALC)); GFR FOR AFR.AMER. > 60 ML/MIN (>=60 (CALC)); POTASSIUM 3.5 mmol/l (3.5-5.1); SGOT/AST 15 u/l (9-36); SGPT/ALT 24 u/l (11-66); SODIUM 132 mmol/l (137-146); TOTAL PROTEIN 6.5 g/dL (6.3-8.2)
--- NOTE | 2017-07-09 11:56 | NUR ---
HOGSHEAD MAT ASSEMBLER PLACED PT UP IN CHAIR. PT CURRENTLY EATING LUNCH AT THIS TIME. CALL AZIZA IN REACH.
--- NOTE | 2017-07-09 12:23 | NUR ---
PT STATES SHE DOES NOT NEED A BATH OR LINEN CHANGE BECAUSE SHE JUST HAD ONE LAST NIGHT.
--- NOTE | 2017-07-09 13:42 | NUR ---
PT RETURNED FROM [facility]. IV ABX RUNNING. PTS ABD DRESSING CHANGED PER MD ORDERS. PTS DOORS LEFT OPEN FOR COLD AIR TO FLOW UP. PT STATES SHE IS FREEZING.
--- NOTE | 2017-07-09 14:08 | NUR ---
DIETARY CONSULT @BEDSIDE. PT REQUESTED A BOWL OF PEACHES. ADDED ENSURE TID TO DIETARY ORDER DUE TO PT NOT FEELING LIKE EATING/DRINKING.
--- NOTE | 2017-07-09 16:13 | NUR ---
PT SLEEPING COMFORTABLY IN ER BED. NO COMPLAINTS/CONCERNS.
--- NOTE | 2017-07-09 16:29 | NUR ---
PT UP TO CHAIR, PER PT REQUEST. PT REMOVED BOTH HEARING AIDS & PLACED IN CUP. PT STATES SHE HAS FINALLY WARMED UP.
--- NOTE | 2017-07-09 17:27 | NUR ---
PT STILL UP IN CHAIR. EATING DINNER & WORKING CROSSWORD PUZZLES IN NEWSPAPER.
--- NOTE | 2017-07-09 19:30 | NUR ---
PT SITTING IN RECLINER CHAIR, REQUESTING ASSISTANCE TO BSC. OUT OF RECLINER WITH MINIMAL ASSISTANCE, VOIDING CLEAR YELLOW URINE THEN TO BED. C/O LEFT SHOULDER AND ABDOMINAL PAIN 5/10, PERCOCET AND LIBRIUM PROVIDED PER PT REQUEST. RESPIRATIONS EVEN AND UNLABORED ON RA, O2 SAT 97%. PO FLUIDS AND CALL LIGHT IN REACH. WILL CONTINUE TO MONITOR.
--- NOTE | 2017-07-09 22:20 | NUR ---
RESTING IN BED WITH EYES CLOSED, RESPIRATIONS EVEN AND UNLABORED ON RA, O2 SAT 95%. IV FLUIDS INFUSING TO RAC AT KVO. CALL LIGHT IN REACH.
--- NOTE | 2017-07-10 | NUR ---
ZOSYIN SPIKED AND INFUSING WITH NO COMPLICATIONS, OOB TO BSC WITH MINIMAL ASSISTANCE, VOIDING 400ML CLEAR YELLOW URINE THEN BACK TO BED. CALL LIGHT IN REACH, RESPIRATIONS EVEN AND UNLABORED ON RA, O2 SAT 97%
[2017-07-10 02:00] VITALS: BP 135/72
--- NOTE | 2017-07-10 02:15 | NUR ---
RESTING IN BED ON RIGHT SIDE WITH EYES CLOSED, RESPIRATIONS EVEN AND UNLABORED ON RA, O2 SAT 97%. CALL LIGHT IN REACH.
[2017-07-10 04:24] VITALS: BP 149/78
--- NOTE | 2017-07-10 04:38 | NUR ---
OOB TO BSC WITH STAND BY ASSISTANCE, VOIDING 400ML OF CLEAR YELLOW URINE, C/O LEFT HOULDER AND ABDOMINAL PAIN 11/19, PERCOCET PROVIDED PER PT REQUEST, BACK TO BED CALL LIGHT IN REACH. RESPIRAITONS EVEN AND UNLABORED.
[2017-07-10 06:00] VITALS: BP 123/57
--- NOTE | 2017-07-10 06:27 | NUR ---
RESTING WITH EYES CLOSED ON RIGHT SIDE, RESPIRATIONS EVEN AND UNLABORED ON RA, O2 SAT 90%, CALL LIGHT IN REACH.
--- NOTE | 2017-07-10 07:15 | NUR ---
PT LAYING IN BED RESTING WITH EYES CLOSED, AROUSES EASILY TO VERBAL STIMULI, PT a & O X3, PERRL, HR 88, RESP. 16, BP 145/71, O2 95% ON RA, LUNG SOUNDS DIMINISHED IN THE BASES, 20G RAC IV, NS INFUSING AT PRESCRIBED RATE, NO REDNESS OR DRAINAGE AT SITE, STRONG RADIAL AND PEDAL PULSES, PT DENIES IN PAIN, ABD DRESSING REMAINS IN PLACE, DRESSING IS CD&I, AM ASSESSMENT COMPLETE, SEE INTERVENTIONS, SAFETY MEASURES REINFORCED, CALL ERVIN WITHIN REACH
--- NOTE | 2017-07-10 07:35 | NUR ---
SETUP ASSISTANCE PROVIDED WITH CY BALBUENA
--- NOTE | 2017-07-10 08:10 | NUR ---
PT ASSISTED TO THE BSC AND BACK TO BED WITH 1 PERSON STAND BY ASSISTANCE, PT TOLERATED WELL, CALL ERVIN WITHIN REACH
--- NOTE | 2017-07-10 09:50 | NUR ---
PT ASSISTED TO THE BSC AND BACK TO BED PER PT REQUEST, PT AMBULATED WITH A SLOW UNSTEADY GAIT, TOLERATED WELL, REMINDED TO CALL FOR ASSISTANCE, CALL ERVIN WITHIN REACH
--- NOTE | 2017-07-10 11:15 | NUR ---
PT ASSISTED TO THE BSC THEN TO THE RECLINER, PT TOLERATED WELL, WARM BLANKET PROVIDED FOR COMFORT, CALL ERVIN WITHIN REACH
--- NOTE | 2017-07-10 11:30 | NUR ---
SETUP ASSISTANCE PROVIDED WITH LUNCH
--- NOTE | 2017-07-10 12:05 | NUR ---
PT REQUESTED TO GO BACK TO BED, PT ASSSITED TO THE BED FROM THE RECLINER, PT AMBULATED WITH A SLOW UNSTEADY GAIT, CALL AZIZA HOOKER REACH
--- NOTE | 2017-07-10 12:35 | NUR ---
PT ASSISTED TO THE BSC THEN TO THE RECLINER, PT TOLERATED WELL, CALL ERVIN WITHIN REACH
--- NOTE | 2017-07-10 13:45 | NUR ---
PT SITTING IN THE RECLINER WATCHING TV, VERBALIZES NO COMPLAINTS, REMINDED TO CALL FOR ASSISTANCE, CALL ERVIN WITHIN REACH
--- NOTE | 2017-07-10 15:35 | NUR ---
PT SITTING UP IN THE CHAIR RESTING WITH EYES CLOSED, AROUSES EASILY TO VERBAL STIMULI, CALL ERVIN WITHIN REACH
--- NOTE | 2017-07-10 16:05 | NUR ---
PT ASSISTED TO THE BSC, NO S/S OF DISTRESS, CALL ERVIN WITHIN REACH
--- NOTE | 2017-07-10 16:45 | NUR ---
DR SILVERMAN AT BEDSIDE DISCUSSING PLAN OF CARE
--- NOTE | 2017-07-10 17:35 | NUR ---
SETUP ASSISTANCE PROVIDED WITH PM MEAL
[2017-07-10 19:20] VITALS: BP 150/78
--- NOTE | 2017-07-10 19:20 | NUR ---
awake. no distress. up to bsc x1 assist. pt requires much encouragement to assist with care as she is willing to allow staff to wait on her. rn cardiac rehab shows sinus rhythm. #22 rac ns infusing @ 20cchr. po fluids taken well. fall precautions cont.
--- NOTE | 2017-07-10 21:30 | NUR ---
pt requested pain med then was awakened for it. oxy 10mg po given.
[2017-07-10 22:00] VITALS: BP 144/73
--- NOTE | 2017-07-10 23:49 | NUR ---
eyes closed. no distress. gambling monitor shows sinus rhythm.
[2017-07-11] VITALS (11 sets, daily range): BP systolic 119–149; BP diastolic 62–81
--- NOTE | 2017-07-11 00:01 | NUR ---
up to bsc. chelsi well. ativan 0.5mg po given per request for sleep.
--- NOTE | 2017-07-11 02:00 | NUR ---
up to bsc. chelsi well. no distress.
--- NOTE | 2017-07-11 04:00 | NUR ---
eyes closed. no distress. phototypesetting equipment monitor shows sinus rhythm.
--- NOTE | 2017-07-11 06:00 | NUR ---
no acute change in condition this shift. no distress.
--- NOTE | 2017-07-11 07:20 | NUR ---
PT SITTING UP IN BED WATCHING TV, PT VERBALIZES NO COMPLAINTES, PT A & O X3, PERRL, HR 88, RESP. 18, BP 140/64, O2 92% ON RA, CLEAR LUNG SOUNDS WITH CRACKLES IN THE BASES, 22G RAC IV WITH NS INFUSING AT PRESCRIBED RATE, STRONG RADIAL & PEDAL PULSES, AM ASSESSMENT COMPLETE, SEE INTERVENTIONS, SAFETY MEASURES REINFORCED, CALL ERVIN WITHIN REACH
--- NOTE | 2017-07-11 07:30 | NUR ---
SETUP ASSISTANCE PROVIDED WITH CY BALBUENA
--- NOTE | 2017-07-11 08:10 | NUR ---
PT ASSISTED TO THE BSC AND BACK TO BED, PT TOLERATED WELL, CALL ERVIN WITHIN REACH
--- NOTE | 2017-07-11 09:45 | NUR ---
PT ASSISTED TO THE RECLINER, PT AMBULATED WITH A SLOW UNSTEADY GAIT, WARM BLANKET PROVIDED FOR PT COMFORT, CALL ERVIN WITHIN REACH
--- NOTE | 2017-07-11 11:35 | NUR ---
PT SITTING UP IN THE RECLINER, TOLERATING WELL, SETUP ASSISTANCE PROVIDED WITH LUNCH, PT REMINDED TO CALL FOR ASSISTANCE, CALL ERVIN WITHIN REACH
--- NOTE | 2017-07-11 13:15 | NUR ---
PT ASSISTED BACK TO BED FROM THE RECLINER, PT AMBUALTED WITH A SLOW UNSTEADY GAIT, PT TOLERATED WELL, REMINDED TO CALL FOR ASSISTANCE, CALL ERVIN WITHIN REACH
--- NOTE | 2017-07-11 16:00 | NUR ---
DR SILVERMAN AT BEDSIDE DISCUSSING PLAN OF CARE
[2017-07-11 16:25] LABS: HEMATOCRIT 36.7 % (37.0-47.0); HEMOGLOBIN 11.9 g/dl (12.0-16.0); IMMATURE GRANULOCYTES 0.5 % (0.0-1.0); MEAN CELL VOLUME 92.2 fL CALC (80.0-100.0); MEAN CORPUSCULAR HGB 29.9 pG CALC (26.0-32.0); MEAN CORPUSCULAR HGB CONC 32.4 g/L CALC (32.0-36.0); NEUT# 9.65 thou/uL (2.00-7.15); RED BLOOD COUNT 3.98 mill/uL (4.20-5.60); RED CELL DISTRI WIDTH 16.3 % (11.5-15.5)
--- NOTE | 2017-07-11 16:30 | NUR ---
LG FLATWORK FEEDER AT BEDSIDE DISCUSSING PLAN OF CARE
[2017-07-11 16:47] LABS: ALBUMIN 4.1 g/dL (3.2-5.0); BILIRUBIN, TOTAL 0.4 mg/dL (0.0-1.4); CREATININE 1.2 mg/dL (0.5-1.0); POTASSIUM 3.6 mmol/l (3.5-5.1)
--- NOTE | 2017-07-11 19:20 | NUR ---
sitting in bedside chair. denies c/o. monitor car operator shows sinus tach. #22 rac ns infusing @ 20cchr. abd dsg cdi. assisted to bsc then to bed. chelsi well. fall precautions cont.
--- NOTE | 2017-07-11 20:00 | NUR ---
report called to tessa.
--- NOTE | 2017-07-11 20:20 | NUR ---
to medsurg per wc to rm 280.
--- NOTE | 2017-07-11 22:05 | NUR ---
2019 RECEIVED PT FROM ICU. REPORT PREVIOUSLY RECEIVED FROM JOSIAH. VS TAKEN, IV FLUIDS INFUSING. PT TUCKED INTO BED. ORIENTED TO ROOM AND CALL LIGHT. BED IN LOW POSITION, CALL LIGHT IN REACH. BED SIDE COMMODE PLACED BY BED. 2201 PERCOCET GIVEN PER REQUEST FOR PAIN.
[2017-07-12 04:00] VITALS: BP 125/60
[2017-07-12 05:18] LABS: HEMATOCRIT 30.7 % (37.0-47.0); HEMOGLOBIN 10.2 g/dl (12.0-16.0); IMMATURE GRANULOCYTES 0.7 % (0.0-1.0); MEAN CELL VOLUME 90.6 fL CALC (80.0-100.0); MEAN CORPUSCULAR HGB 30.1 pG CALC (26.0-32.0); MEAN CORPUSCULAR HGB CONC 33.2 g/L CALC (32.0-36.0); NEUT# 5.7 thou/uL (2.00-7.15); RED BLOOD COUNT 3.39 mill/uL (4.20-5.60); RED CELL DISTRI WIDTH 16.3 % (11.5-15.5)
[2017-07-12 05:40] LABS: ALKALINE PHOSPHATASE 46 u/l (38-126); ANION GAP 14 (6-22 (CALC)); BILIRUBIN, TOTAL 0.3 mg/dL (0.0-1.4); BUN 26 mg/dL (8-23); BUN/CREATININE RATIO 26 (12-20 (CALC)); CARBON DIOXIDE 35 mmol/l (22-30); CHLORIDE 88 mmol/l (95-108); GFR 55 ML/MIN (>=60 (CALC)); GFR FOR AFR.AMER. > 60 ML/MIN (>=60 (CALC)); SGOT/AST 24 u/l (9-36); SGPT/ALT 31 u/l (11-66); SODIUM 135 mmol/l (137-146)
[2017-07-12 05:42] LABS: ALBUMIN 3.2 g/dL (3.2-5.0)
--- NOTE | 2017-07-12 07:00 | NUR ---
RECEIVED BEDSIDE REPORT FROM XUAN LAW. RESTING IN BED WITH EYES CLOSED, AWAKENS EASILY. RESPS EVEN AND UNLABORED ON ROOM AIR. #22 RAC INFUSING WITHOUT DIFFICULTY, SITE APPEARS HEALTHY. VOICES NO NEEDS AT THIS TIME. PLAN OF CARE DISCUSSED. SAFETY PRECAUTIONS REINFORCED. BED IN LOWEST POSITION WITH WHEELS LOCKED. CALL LIGHT WITHIN REACH. ENCOURAGED PT TO CALL FOR ANY NEEDS.
--- NOTE | 2017-07-12 07:15 | NUR ---
REPORT GIVEN TO ANI LEE. PT LAYING IN BED ON SIDE. RESP EVEN AND UNLABORED. CALL LIGHT IN REACH. BED IN LOW POSITION.
--- NOTE | 2017-07-12 08:29 | NUR ---
SPOKE WITH PATRICK TO VERIFY CONSULT @ 2004
[2017-07-12 08:33] VITALS: BP 140/58
[2017-07-12 08:37] VITALS: BP 140/58
--- NOTE | 2017-07-12 11:30 | NUR ---
DR TRAN AT BEDSIDE, NEW ORDERS RECEIVED.
--- NOTE | 2017-07-12 12:45 | NUR ---
AMBULATED FROM BATHROOM TO BEDSIDE CHAIR WITH STAND BY ASSIST. MEDICATED WITH PERCOCET PO FOR C/O 4/10 ABD WOUND PAIN. CALL LIGHT WITHIN REACH. WILL CONTINUE TO MONITOR.
[2017-07-12] MEDS ORDERED: MAG OXIDE400 MG PO (13:01)
[2017-07-12] MEDS ORDERED: MICRO-K10 MEQ PO (13:01)
[2017-07-12] MEDS ORDERED: BUMETANIDE0.5 MG PO (13:01)
[2017-07-12] MEDS ORDERED: PREDNISONE10 MG PO (13:06)
[2017-07-12] MEDS ORDERED: AUGMENTIN875TAB PO (13:06)
[2017-07-12] MEDS ORDERED: FLORASTOR250 M1 PO (13:06)
--- NOTE | 2017-07-12 14:33 | NUR ---
IV site discontinued, cath intact. No edema , no redness, voices no discomfort.
--- NOTE | 2017-07-12 14:55 | NUR ---
Discharge instructions given. Patient verbalizes understanding of same. Discharged in stable condition via Wheelchair to Home with family. All belongings sent with pt.
== END 2017-07-12 14:58 | disposition home health service (06) | DRG 190 ==
LOC: ICU 15:08 → MS2 07-11 20:23
PROVIDERS: Hospitalist; ADMIT Internal Medicine; ATTEND Internal Medicine
DX: J44.1 Chronic obstructive pulmonary disease with (acute) exacerbation (principal); J18.9 Pneumonia, unspecified organism; J96.21 Acute and chronic respiratory failure with hypoxia; E87.3 Alkalosis; I11.0 Hypertensive heart disease with heart failure; E83.42 Hypomagnesemia; D62 Acute posthemorrhagic anemia; E87.1 Hypo-osmolality and hyponatremia; G62.9 Polyneuropathy, unspecified; I50.9 Heart failure, unspecified; J44.0 Chronic obstructive pulmonary disease with (acute) lower respiratory infection; F10.20 Alcohol dependence, uncomplicated; F17.210 Nicotine dependence, cigarettes, uncomplicated; F32.9 Major depressive disorder, single episode, unspecified; F12.90 Cannabis use, unspecified, uncomplicated; M19.90 Unspecified osteoarthritis, unspecified site; F41.0 Panic disorder [episodic paroxysmal anxiety]; T81.31XD Disruption of external operation (surgical) wound, not elsewhere classified, subsequent encounter; Y83.8 Other surgical procedures as the cause of abnormal reaction of the patient, or of later complication, without mention of misadventure at the time of the procedure; Z87.11 Personal history of peptic ulcer disease
CPT/HCPCS: J3475; Q9967

== ENCOUNTER 2017-09-07 12:15 | Emergency (ER) | payer MEDICARE, OTHER ==
[~2017-09-07] VITALS: Ht 152.4 cm; Wt 52.2 kg
[~2017-09-07 12:15] MED LIST changes: +AUGMENTIN875TAB PO; +ESCITALOPRAM OX10 MG PO; +MICRO-K10 MEQ PO
[2017-09-07 12:56] LABS: HEMATOCRIT 33.7 % (37.0-47.0); HEMOGLOBIN 11.1 g/dl (12.0-16.0); IMMATURE GRANULOCYTES 0.3 % (0.0-1.0); MEAN CELL VOLUME 90.1 fL CALC (80.0-100.0); MEAN CORPUSCULAR HGB 29.7 pG CALC (26.0-32.0); MEAN CORPUSCULAR HGB CONC 32.9 g/L CALC (32.0-36.0); NEUT# 4.97 thou/uL (2.00-7.15); RED BLOOD COUNT 3.74 mill/uL (4.20-5.60); RED CELL DISTRI WIDTH 17.2 % (11.5-15.5)
[2017-09-07 13:20] LABS: ALBUMIN 3.8 g/dL (3.2-5.0); ALKALINE PHOSPHATASE 70 u/l (38-126); ANION GAP 14 (6-22 (CALC)); BILIRUBIN, TOTAL 0.7 mg/dL (0.0-1.4); BUN 16 mg/dL (8-23); BUN/CREATININE RATIO 25 (12-20 (CALC)); CARBON DIOXIDE 28 mmol/l (22-30); CHLORIDE 98 mmol/l (95-108); CREATININE 0.6 mg/dL (0.5-1.0); GFR > 60 ML/MIN (>=60 (CALC)); GFR FOR AFR.AMER. > 60 ML/MIN (>=60 (CALC)); POTASSIUM 3.8 mmol/l (3.5-5.1); SGOT/AST 23 u/l (9-36); SGPT/ALT 28 u/l (11-66); SODIUM 136 mmol/l (137-146)
[2017-09-07 13:32] LABS: MYOGLOBIN 43 ng/mL (0 - 62)
[2017-09-07] MEDS ORDERED: TUSSIN DM PO (14:01)
[2017-09-07] MEDS ORDERED: NYQUI2 PO (14:02)
[2017-09-07] MEDS ORDERED: IBUPROFEN200 MG PO (14:03)
[2017-09-07] MEDS ORDERED: BUMETANIDE0.5 MG PO (14:03)
[2017-09-07] MEDS ORDERED: TENORMIN PO (14:03)
[2017-09-07] MEDS ORDERED: ESCITALOPRAM OX10 MG PO (14:04)
[2017-09-07] MEDS ORDERED: KLOR-CON 1010 MEQ PO (14:04)
[2017-09-07] MEDS ORDERED: NEURONTIN300 MG PO (14:05)
[2017-09-07] MEDS ORDERED: MAG OXIDE400 MG PO (14:05)
[2017-09-07] MEDS ORDERED: HYDROCODONE/ACE1 TAB PO (14:06)
[2017-09-07] MEDS ORDERED: MULTIVITAMI1 PO (14:07)
[2017-09-07 15:12] LABS: URINE BILIRUBIN - DIPSTICK NEGATIVE (NEGATIVE); URINE BLOOD DIPSTICK NEGATIVE (NEGATIVE); URINE COLOR YELLOW; URINE GLUCOSE - DIPSTICK NEGATIVE (NEGATIVE); URINE KETONE NEGATIVE (NEGATIVE); URINE NITRITE - DIPSTICK NEGATIVE (Negative); URINE PROTEIN - DIPSTICK NEGATIVE (NEG-TRACE); URINE UROBILINOGEN - DIPSTICK 0.2 E.U./dL (0.2)
[2017-09-07 15:15] LABS: URINE CLARITY CLEAR; URINE LEUK ESTERASE SMALL (NEGATIVE)
[2017-09-07 15:22] LABS: URINE SQUAMOUS EPITHELIAL CELL FEW EPI/hpf (0-FEW)
[2017-09-07] MEDS ORDERED: KEFLEX500 M1 PO (16:14)
[2017-09-07] MEDS ORDERED: ZITHROMAX500 MG PO (16:14)
[2017-09-07 16:22] VITALS: BP 164/80
== END 2017-09-07 16:22 | disposition home or self-care (01) ==
LOC: ED 12:15
DX: J44.1 Chronic obstructive pulmonary disease with (acute) exacerbation (principal); I10 Essential (primary) hypertension; M19.90 Unspecified osteoarthritis, unspecified site; F32.9 Major depressive disorder, single episode, unspecified; Z87.11 Personal history of peptic ulcer disease; R06.02 Shortness of breath; R94.31 Abnormal electrocardiogram [ECG] [EKG]

== ENCOUNTER 2018-02-22 15:29 | Inpatient (IN) | payer MEDICARE, OTHER ==
[~2018-02-22] VITALS: Ht 152.4 cm; Wt 47.7 kg
[~2018-02-22 15:29] MED LIST changes: +HYDROCODONE/ACE1 TAB PO; +IBUPROFEN200 MG PO; +KEFLEX500 M1 PO; +MULTIVITAMI1 PO; +NYQUI2 PO; +TENORMIN PO; +TUSSIN DM PO; +ZITHROMAX500 MG PO
--- NOTE | 2018-02-22 15:41 | NUR ---
PT TRIAGED, TO TX ROOM VIA WC
[2018-02-22 16:29] LABS: HEMATOCRIT 34.1 % (37.0-47.0); HEMOGLOBIN 11.2 g/dl (12.0-16.0); IMMATURE GRANULOCYTES 0.4 % (0.0-5.0); MEAN CORPUSCULAR HGB 27.5 pG CALC (26.0-32.0); MEAN CORPUSCULAR HGB CONC 32.8 g/L CALC (32.0-36.0); NEUT# 5.07 thou/uL (2.00-7.15); RED BLOOD COUNT 4.08 mill/uL (4.20-5.60); RED CELL DISTRI WIDTH 16.7 % (11.5-15.5)
[2018-02-22 16:36] LABS: MEAN CELL VOLUME 83.6 fL CALC (80.0-100.0)
--- NOTE | 2018-02-22 16:40 | NUR ---
PATIENT UP TO BSC, BECAME SOB O2 APPLIED AT 2L/MIN VIA NASAL CANNULA. WHEEZING NOTED TO BILATERAL LUNGS. IV ANTIBIOTIC INFUSING WELL. WILL CONTINUE TO MONITOR.
[2018-02-22 16:48] LABS: ALBUMIN 4.6 g/dL (3.2-5.0); ALKALINE PHOSPHATASE 93 u/l (38-126); ANION GAP 18 (6-22 (CALC)); BILIRUBIN, TOTAL 0.7 mg/dL (0.0-1.4); BUN 12 mg/dL (8-23); BUN/CREATININE RATIO 24 (12-20 (CALC)); CARBON DIOXIDE 26 mmol/l (22-30); CHLORIDE 90 mmol/l (95-108); CREATININE 0.5 mg/dL (0.5-1.0); GFR > 60 ML/MIN (>=60 (CALC)); GFR FOR AFR.AMER. > 60 ML/MIN (>=60 (CALC)); POTASSIUM 4.6 mmol/l (3.5-5.1); SGOT/AST 33 u/l (9-36)
[2018-02-22 16:49] LABS: SODIUM 129 mmol/l (137-146)
--- NOTE | 2018-02-22 17:13 | NUR ---
AT BEDSIDE TO DISCUSS RESULTS AND PLAN OF CARE
--- NOTE | 2018-02-22 18:05 | NUR ---
PATIENT REQUESTING PAIN MEDICATION FOR CHRONIC ABD PAIN. INFORMED.
--- NOTE | 2018-02-22 18:15 | NUR ---
PATIENT ASSISTED TO BSC MULTIPLE TIMES. APPROX. 1000 ML OF CLEAR YELLOW URINE OUT
--- NOTE | 2018-02-22 18:24 | NUR ---
ATTEMPT MADE TO CALL REPORT, SPOKE TO KACI. STATES NURSE WILL CALL BACK FOR REPORT.
[2018-02-22 18:40] VITALS: BP 171/84
--- NOTE | 2018-02-22 18:40 | NUR ---
PATIENT TRANSPORTED TO [facility] VIA STRETCHER WITH TELE AND O2 IN PLACE, CARE RELINQUISHED TO ANI VALLADARES.
--- NOTE | 2018-02-22 18:40 | NUR ---
PT ADMITTED TO MED SURG RM 272 VIA STRETCHER FROM ER, PT STOOD OFF STRETCHER AND ONTO STANDING SCALE WEIGHT OBTAINED THEN INTO BED WITH STEADY GAIT BUT SOME EXERTIONSL DYSPNEA NOTED, O2 AT 2L VIA NC, ENCOURAGED TO REST, ORIENTED TO ROOM AND UNIT, SENIOR PRODUCT ENGINEER AT BEDSIDE FOR VS, CALL ERVIN WITHIN REACH.
--- NOTE | 2018-02-22 19:30 | NUR ---
PATIENT RESTING IN BED AT THIS TIME-ALERT AND ORIENTEDX3. O2 VIA NASAL CANNULA IN PLACE AT 2LPM. PATIENT STATES THAT SHE DOES HAVE HOME O2 IN PLACE. SOB WITH EXHERSION. STATES THAT SHE RECENTLY STARTED SMOKING AGAIN AND THAT IS WHEN HER SOB INCREASED. ALSO STATES THAT SHE DOES DRINK 4-5 ALCOHOLIC DRINKS DAILY AND DOES SMOKE POT. SALINE LOCK TO LEFT WRIST INTACT AND APPEARS HEALTHY AT THIS TIME. ORIENTED PATIENT TO ROOM AND SURROUNDINGS. INSTRUCTED ON USE OF NURSE CALL LIGHT SYSTEM, TV REMOTE AND USE OF TELEPHONE. CALL LIGHT IN REACH. WILL CONT TO MONITOR.
[2018-02-22 21:08] LABS: URINE BILIRUBIN - DIPSTICK NEGATIVE (NEGATIVE); URINE BLOOD DIPSTICK TRACE-LYSED (NEGATIVE); URINE COLOR YELLOW; URINE GLUCOSE - DIPSTICK 100 mg/dL (NEGATIVE); URINE KETONE NEGATIVE (NEGATIVE); URINE LEUK ESTERASE NEGATIVE (NEGATIVE); URINE NITRITE - DIPSTICK NEGATIVE (Negative); URINE PROTEIN - DIPSTICK NEGATIVE (NEG-TRACE); URINE UROBILINOGEN - DIPSTICK 0.2 E.U./dL (0.2)
[2018-02-22 21:09] LABS: URINE CLARITY CLEAR
--- NOTE | 2018-02-22 21:30 | NUR ---
PATIENT UP AND DOWN TO BSC FREQUENTLY VOIDING ON BSC IN SMALL AMTS. DENIES ANY BURNING OR DISCOMFORT. URINE SPEC OBTAINED AND SENT TO LAB. PATIENT MEDICATED WITH NORVASC AND BUMEX ORDERED. MEDICATED FOR PAIN WITH PERCOCET ORDERED. PATIENT SEEMS TO HAVE INCREASED SOB WHEN STAFF IS IN ROOM. PATIENT ALSO HAS DRESSING TO ABD INTACT-STATES SHE DOES HAVE [facility] THAT HAS BEEN COMING IN FOR WOUND CARE OF SLOW HEALTHY ABD WOUND. STATES THAT SHE HAD SURGERY FOR REMOVAL OF MESH FROM HERNIA REPAIR LAST YEAR. SAFETY PRECAUTIONS REINFORCED. CALL LIGHT IN REACH. WILL CONT TO MONITOR.
--- NOTE | 2018-02-23 00:08 | NUR ---
PATIENT UP AGAIN WITH ASSIST TO BSC TO VOID 400CC OF CLEAR YELLOW URINE. ASSISTED BACK TO THE BED. PATIENT BECOMES MUCH MORE DRAMATIC WHEN SHE KNOW STAFF IS IN THE ROOM. NON-PRODUCTIVE COUGH NOTED. SAFETY PRECAUTIONS REINFORCED. CALL LIGHT IN REACH. WILL CONT TO MONITOR
[2018-02-23 00:48] VITALS: BP 166/80
--- NOTE | 2018-02-23 02:25 | NUR ---
PATIENT APPEARS SLEEPING AT THIS TIME POSITIONED ON HER RIGHT SIDE WITH O2 VIA NASAL CANNULA IN PLACE. RESP ARE EVEN AND UNLABORED. CALL LIGHT IN REACH. WILL CONT TO MONITOR.
--- NOTE | 2018-02-23 04:00 | NUR ---
PATIENT APPEARS SLEEPING AT THIS TIME WITH O2 VIA NASAL CANNULA IN PLACE AT 2LPM. TELE MONITOR IN PLACE. PATIENT RESP ARE EVEN AND UNLABORED AT THIS TIME. CALL LIGHT IN REACH. WILL CONT TO MONITOR.
[2018-02-23 04:30] VITALS: BP 142/71
--- NOTE | 2018-02-23 05:34 | NUR ---
PATIENT RESTING IN BED WITH O2 VIA NASAL CANNULA IN PLACE. PATIENT C/O CHRONIC ABD PAIN-MOANING AND GRUNTING WITH PAIN LEVEL OF 5/10. PATIENT VERY DRAMATIC. MEDICATED WITH PERCOCET 10/325MG PO FOR PAIN. SAFETY PRECAUTIONS REINFORCED.CALL LIGHT IN REACH. WILL CONT TO MONITOR.
--- NOTE | 2018-02-23 07:20 | NUR ---
REPORT RECEIVED FROM ANI MEJIA; PT SITTING UP ON EDGE OF BED WANTING TO KNOW WHAT TIME DR WILL BE IN; NO S/S OF DISTRESS NOTED. WILL CONTINUE TO MONITOR.
--- NOTE | 2018-02-23 07:30 | NUR ---
SHIFT CHANGE REPORT FROM SERINA MEJIA AWAKE ALERT AND ORIENTED SITTING UP AT BEDSIDE, NO C/O DISCOMFORT AT THIS TIME, TELE MONITOR IN PLACE, CALL ERVIN IN REACH.
[2018-02-23 07:44] VITALS: BP 124/63
--- NOTE | 2018-02-23 08:04 | NUR ---
GORGE FROM HOME HEALTH CALLED TO INFORM US DRESSING FOR PT IS EVERY OTHER DAY, TO CLEAN WITH 0.9 NS, APPLY GENTAMYCIN OINTMENT AND COVER WITH ENDOFORM, SHE WILL FAX ORDER TO UNIT.
--- NOTE | 2018-02-23 09:36 | NUR ---
SITTING UP AT BEDSIDE AFTER TRANSFER FROM RECLINER, STATED SHE IS VERY UNCOMFORTABLE BOTH IN BED AND IN RECLINER, ASKED WHAT CAN WE DO TO MAKE HER MORE COMFORTABLE SHE GAVE NO ANSWER; WILL CONTINUE TO MONITOR.
--- NOTE | 2018-02-23 10:31 | NUR ---
PT MEDICATED WITH PERCOCET FOR L ABD PAIN; PAIN SCALE 5/10; APPOINTMENT SCHEDULER ASSISTED PT TO BSC, PT VOIDED CLEAR YELLOW URINE; RESP LABORED; PT VOICED NO OTHER CONCERNS; WILL CONTINUE TO MONITOR.
--- NOTE | 2018-02-23 11:37 | NUR ---
PT SITTING UP IN RECLINER EATING LUNCH; 02 @ 2L NC IN PLACE; NO S/S OF DISTRESS NOTED; NO MOANING OR GRUNTING NOTED; PT APPEARS TO BE CALM. CALL LIGHT IN REACH. WILL CONTINUE TO MONITOR.
[2018-02-23 12:00] VITALS: BP 142/66
--- NOTE | 2018-02-23 12:01 | NUR ---
DR TOMPKINS AT BEDSIDE TO DISCUSS POC.
--- NOTE | 2018-02-23 12:50 | NUR ---
PT OFF THE FLOOR FOR AN ECHO ACCOMPANIED BY A VOLUNTEER VIA W/C, WITH 02 2L NC
--- NOTE | 2018-02-23 13:20 | NUR ---
PT RETURNED TO FLOOR VIA W/C ACCOMPANIED BY A VOLUNTEER; ASSISTED PT TO BSC, VOIDED 50CC CLEAR YELLOW URINE. PT BACK IN MED. MEDICATED PER EMAR
--- NOTE | 2018-02-23 14:50 | NUR ---
Spoke with patient about medications. Patient understood uses of medications and had no questions about therapy at this time.
--- NOTE | 2018-02-23 14:56 | NUR ---
ASSISTED PT TO BSC PT VOIDED 200 CLEAR, YELLOW URINE. PT TOLERATED GETTING UP WITHOUT ANY SHORTNESS OF BREATH. PT APPEARS CALM AND FRIENDLY. HUNG CEFTRIAXONE INFUSING WELL, IV SITED APPEARS HEALTHY. PT VOICED NO CONCERNS; WILL CONTINUE TO MONITOR.
[2018-02-23 16:00] VITALS: BP 130/62
--- NOTE | 2018-02-23 17:05 | NUR ---
NEB TX. GIVEN PRN
--- NOTE | 2018-02-23 18:30 | NUR ---
#20 TO LEFT HAND INFILTRATE, CATHETER REMOVED AND INTACT; SITE APPEARS SWOLLEN; NEW IV SITE #20G TO RIGHT FOREARM ON 2ND ATTEMPT; FLUIDS RESTARTED WITHOUT DIFFICULTY; PT TOLERATED WELL; WILL CONTINUE TO MONITOR.
--- NOTE | 2018-02-23 19:28 | NUR ---
BEDSIDE REPORT RECEIVED FROM DUONG TALLEY. PT SITTING UP IN RECLINER; ASSITED TO BED FOR ECHO. PT ALERT AND ORIENTED; SBA. DENIES PAIN CURRENTLY. RESPIRATIONS EVEN AND UNLABORED ON OXYGEN. PLAN OF CARE REVIEWED. PT ENCOURAGED TO VERBALIZE CONCERNS. STATES UNDERSTANDING. SAFETY MEASURES IN PLACE. CALL LIGHT WITHIN REACH.
[2018-02-23 19:29] VITALS: BP 106/63
--- NOTE | 2018-02-23 20:49 | NUR ---
ECHO AT BEDSIDE.
--- NOTE | 2018-02-24 00:13 | NUR ---
PT AWAKNED FOR MIDNIGHT MEDICATION; MOANING WITH MOVEMENT. WILL ADMINISTER PERCOCET AT NEXT AVAILABLE TIME. RESPIRATIONS EVEN AND UNLABORED ON OXGYEN. ASSISTED TO BSC AT THIS TIME. IV FLUIDS INFUSING WITHOUT DIFFICULTY; IV SITE APPEARS HEALTHY. REMAINS ONE PERSON ASSIST TO BSC. NO OTHER REQUESTS OR CONCERNS AT THIS TIME. SAFETY MEASURES IN PLACE. CALL LIGHT WITHIN REACH.
[2018-02-24 00:28] VITALS: BP 136/64
[2018-02-24 05:08] VITALS: BP 140/60
[2018-02-24 05:32] LABS: IMMATURE GRANULOCYTES 0.4 % (0.0-5.0); MEAN CELL VOLUME 84.6 fL CALC (80.0-100.0); MEAN CORPUSCULAR HGB 27.7 pG CALC (26.0-32.0); MEAN CORPUSCULAR HGB CONC 32.7 g/L CALC (32.0-36.0); NEUT# 6.46 thou/uL (2.00-7.15); RED BLOOD COUNT 3.25 mill/uL (4.20-5.60)
[2018-02-24 05:34] LABS: HEMATOCRIT 27.5 % (37.0-47.0)
[2018-02-24 05:40] LABS: ALKALINE PHOSPHATASE 56 u/l (38-126); BILIRUBIN, TOTAL 0.3 mg/dL (0.0-1.4); BUN 16 mg/dL (8-23); BUN/CREATININE RATIO 24 (12-20 (CALC)); CARBON DIOXIDE 27 mmol/l (22-30); CREATININE 0.7 mg/dL (0.5-1.0); GFR > 60 ML/MIN (>=60 (CALC)); GFR FOR AFR.AMER. > 60 ML/MIN (>=60 (CALC)); MAGNESIUM 1.5 mg/dL (1.6-2.3); POTASSIUM 3.8 mmol/l (3.5-5.1); SGOT/AST 17 u/l (9-36); SODIUM 135 mmol/l (137-146)
[2018-02-24 05:42] LABS: ALBUMIN 3.3 g/dL (3.2-5.0); ANION GAP 11 (6-22 (CALC)); CHLORIDE 101 mmol/l (95-108)
--- NOTE | 2018-02-24 07:05 | NUR ---
REPORT RECEIVED FROM ALFREDO. PT IS SITTING IN RECLINER WITH NO S/S OF DISTRESS NOTED. PT DENIES NEEDS AT THIS TIME. SAFETY PRECAUTIONS REINFORCED AND CALL LIGHT IN REACH.
[2018-02-24 08:06] VITALS: BP 126/59
--- NOTE | 2018-02-24 08:51 | NUR ---
PT REFUSED HER LOVENOX AND NICOTINE PATCH. PT IS SITTING IN RECLINER. ASSESSMENT DONE. 02 AT 2L/MIN VIA NC. LUNGS SOUND DIMINISHED/WHEEZES. PT IS A&O X3. #20 RFA THAT APPEARS HEALTHY. PT STATED PAIN IN ABD 2 BUT DENIES PAIN MEDICATION AT THIS TIME. ABD DRESSING IS CDI. PT DENIES NEEDS AT THIS TIME. SAFETY PRECAUTIONS REINFORCED AND CALL LIGHT IN REACH.
--- NOTE | 2018-02-24 10:20 | NUR ---
PT RESTING IN BED WITH NO S/S OF DISTRESS NOTED. DRESSING CHANGE TO ABD NO BLEEDING NOTED. MOISTENED ENDOFORM APPLIED. PT TOLERATED WELL. PT DENIES NEEDS AT THIS TIME. CALL LIGHT IN REACH.
[2018-02-24 11:24] VITALS: BP 112/51
--- NOTE | 2018-02-24 11:29 | NUR ---
PT IS AMBULATING IN THE ROOM. IN ROOM TO ASSESS PT. NOTIFIED MD THAT PT REFUSED HER NICOTINE PATCH. ALSO, THAT PT HAS HEMORRHOIDS WITH MILD-MODERATED BLEEDING NOTED.
--- NOTE | 2018-02-24 12:12 | NUR ---
MEDICATED PT WITH LIBRIUM SEE EMAR. PT IS SITTING IN RECLINER EATING HER LUNCH. PT DENIES PAIN AT THIS TIME. CALL LIGHT IN REACH.
[2018-02-24 15:18] VITALS: BP 145/60
--- NOTE | 2018-02-24 16:00 | NUR ---
PT IS RESTING IN BED WITH NO S/S OF DISTRESS NOTED. PT DENIES NEEDS AT THIS TIME. TELE IN PLACE. CALL LIGHT IN REACH.
--- NOTE | 2018-02-24 19:47 | NUR ---
NURSE TO NURSE REPORT FROM ELY LAW. PT RESTING IN BED AT THIS TIME. ALERT AND ORIENTED. C/O ACHY PAIN IN SHOULDERS AND ABDOMEN 05/22 WILL ADMINISTER PRN PAIN MEDICATION AT NEXT AVAIABLE TIME. INFORM PT OF NEEDING STOOL SAMPLE. PT VERABLIZED UNDERSTANDING. PT DENIES ANY OTHER NEEDS OR WANTS AT THIS TIME. IV SITE SALINE LOCKED AND DRESSING TO ABD CDI. PT ON 2L O2 RESPIRATIONS EVEN AND UNLABORED. CALL LIGHT WITHIN REACH. WILL CONTINUE TO MONITOR.
[2018-02-24 20:00] VITALS: BP 157/77
--- NOTE | 2018-02-24 21:00 | NUR ---
ADMINISTERED MEDICATIONS PER MAR. PROVIDED SNACK UPON REQUEST OF PT AT THIS TIME. DENIES ANY PAIN OR DISCOMFORT. PT SITTING UP IN RECLINER. CALL LIGHT WITHIN REACH.
[2018-02-25 00:09] VITALS: BP 159/79
--- NOTE | 2018-02-25 01:23 | NUR ---
PT RESTING IN BED WITH EYES CLOSED. RESPIRATIONS EVEN AND UNLABORED. 02 AT 2L VIA NC. NO S/S OF DISCOMFORT NOTED. CALL LIGHT WITHIN REACH. WILL CONTINUE TO MONITOR.
--- NOTE | 2018-02-25 02:46 | NUR ---
PT HAD EPISODE OF INCONTINENCE CALLED NURSE TO ROOM TO EXPLAIN SHE HAD CLEANED HERSELF UP AND FLUSHED STOOL. EDUCATED PT ON CALLING FOR ASSISTANCE BEFORE GETTING UP. PT VERBALIZED UNDERSTANDING AT THIS TIME. NOTED WIPES WITH MODERATE AMOUNT OF BLOOD IN GARBAGE CAN, PT STATES ITS HER HEMORRHOIDS. WILL CONTINUE TO MONITOR.
--- NOTE | 2018-02-25 03:28 | NUR ---
STOOL SAMPLE OBTAINED AND SENT TO LAB.
[2018-02-25 04:22] VITALS: BP 163/83
[2018-02-25 05:06] LABS: HEMATOCRIT 30.1 % (37.0-47.0); HEMOGLOBIN 9.7 g/dl (12.0-16.0); IMMATURE GRANULOCYTES 0.4 % (0.0-5.0); MEAN CELL VOLUME 86.2 fL CALC (80.0-100.0); MEAN CORPUSCULAR HGB 27.8 pG CALC (26.0-32.0); MEAN CORPUSCULAR HGB CONC 32.2 g/L CALC (32.0-36.0); NEUT# 4.51 thou/uL (2.00-7.15); RED BLOOD COUNT 3.49 mill/uL (4.20-5.60); RED CELL DISTRI WIDTH 16.8 % (11.5-15.5)
[2018-02-25 05:37] LABS: ALBUMIN 3.9 g/dL (3.2-5.0); ALKALINE PHOSPHATASE 61 u/l (38-126); ANION GAP 14 (6-22 (CALC)); BILIRUBIN, TOTAL 0.3 mg/dL (0.0-1.4); BUN 18 mg/dL (8-23); BUN/CREATININE RATIO 29 (12-20 (CALC)); CARBON DIOXIDE 26 mmol/l (22-30); CHLORIDE 99 mmol/l (95-108); CREATININE 0.6 mg/dL (0.5-1.0); GFR > 60 ML/MIN (>=60 (CALC)); GFR FOR AFR.AMER. > 60 ML/MIN (>=60 (CALC)); MAGNESIUM 1.5 mg/dL (1.6-2.3); POTASSIUM 4.2 mmol/l (3.5-5.1); SGOT/AST 17 u/l (9-36); SODIUM 135 mmol/l (137-146); TOTAL PROTEIN 6.8 g/dL (6.3-8.2)
--- NOTE | 2018-02-25 07:00 | NUR ---
REPORT RECEIVED BY MELANIE. PT IS SLEEPING IN BED WITH NO S/S OF DISTRESS NOTED. CALL LIGHT IN REACH.
[2018-02-25 07:52] VITALS: BP 155/70
--- NOTE | 2018-02-25 08:01 | NUR ---
PT IS SITTING IN RECLINER. O2 AT 2L/MIN VIA NC. PT IS A&O X3. PT STATED PAIN IN ABD IS 2/10 BUT DENIES PAIN MEDICATION AT THIS TIME.TELE IN PLACE. LUNG SOUND DIMINISHED # 22 RFA THAT APPEARS HEALTHY. PT DENIES NEEDS AT THIS TIME. SAFETY PRECAUTIONS REINFORCED AND CALL LIGHT IN REACH.
[2018-02-25 11:23] VITALS: BP 155/71
--- NOTE | 2018-02-25 12:10 | NUR ---
MEDICATED PT WITH PERCOCET FOR PAIN IN ABD 06/19 SEE EMAR. PT AMBULATING IN HER ROOM. PT DENIES ANY OTHER NEEDS AT THIS TIME. CALL LIGHT IN REACH.
[2018-02-25] MEDS ORDERED: DOXYCYCL HYC100 MG PO (13:46)
[2018-02-25] MEDS ORDERED: LIBRIUM25 M1 PO (14:20)
--- NOTE | 2018-02-25 15:07 | NUR ---
Discharge instructions given. Patient verbalizes understanding of same. Discharged in stable condition via Wheelchair to Home with spouse. All belongings sent with pt.
== END 2018-02-25 15:07 | disposition home health service (06) | DRG 191 ==
LOC: ED 15:29 → ED-I 17:00 → ED 17:50 → MS2 17:51
PROVIDERS: Emergency Medicine; Internal Medicine Nephrology; ADMIT Internal Medicine; ATTEND Internal Medicine
DX: J44.1 Chronic obstructive pulmonary disease with (acute) exacerbation (principal); E87.1 Hypo-osmolality and hyponatremia; F10.239 Alcohol dependence with withdrawal, unspecified; K63.2 Fistula of intestine; T81.83XD Persistent postprocedural fistula, subsequent encounter; J44.0 Chronic obstructive pulmonary disease with (acute) lower respiratory infection; J20.9 Acute bronchitis, unspecified; I11.0 Hypertensive heart disease with heart failure; I50.9 Heart failure, unspecified; F17.210 Nicotine dependence, cigarettes, uncomplicated; M19.90 Unspecified osteoarthritis, unspecified site; T50.1X5A Adverse effect of loop [high-ceiling] diuretics, initial encounter; F41.1 Generalized anxiety disorder; F32.9 Major depressive disorder, single episode, unspecified; K59.00 Constipation, unspecified; G62.9 Polyneuropathy, unspecified; D50.9 Iron deficiency anemia, unspecified; E83.42 Hypomagnesemia; R19.5 Other fecal abnormalities; Z87.11 Personal history of peptic ulcer disease; Z99.81 Dependence on supplemental oxygen
CPT/HCPCS: J1650; J1756; J3475

== ENCOUNTER 2018-06-13 11:35 | Observation (INO) | payer MEDICARE, OTHER ==
[~2018-06-13] VITALS: Ht 152.4 cm; Wt 43.7 kg
[~2018-06-13 11:35] MED LIST changes: +DOXYCYCL HYC100 MG PO; +LIBRIUM25 M1 PO
--- NOTE | 2018-06-13 11:35 | NUR ---
PATIENT ARRIVED TO ED VIA EMS, PATIENT ALERT AND ORIENTED X4. REPORTS HAVING RECENT ABDOMINAL SURGERY ON 06/09/18.
--- NOTE | 2018-06-13 11:50 | NUR ---
PT TO ER FOR WEAKNESS AND NAUSEA. PT IS AOX4. PT DENIES ANY C/P, SOB
[2018-06-13 12:06] LABS: HEMATOCRIT 37.2 % (37.0-47.0); HEMOGLOBIN 12.5 g/dl (12.0-16.0); IMMATURE GRANULOCYTES 0.2 % (0.0-5.0); MEAN CELL VOLUME 91.2 fL CALC (80.0-100.0); MEAN CORPUSCULAR HGB 30.6 pG CALC (26.0-32.0); MEAN CORPUSCULAR HGB CONC 33.6 g/L CALC (32.0-36.0); NEUT# 6.83 thou/uL (2.00-7.15); RED BLOOD COUNT 4.08 mill/uL (4.20-5.60); RED CELL DISTRI WIDTH 15.6 % (11.5-15.5)
[2018-06-13 12:20] LABS: ALBUMIN 4.7 g/dL (3.2-5.0); ALKALINE PHOSPHATASE 63 u/l (38-126); ANION GAP 16 (6-22 (CALC)); BUN 23 mg/dL (8-23); BUN/CREATININE RATIO 36 (12-20 (CALC)); CARBON DIOXIDE 27 mmol/l (22-30); CHLORIDE 91 mmol/l (95-108); CREATININE 0.6 mg/dL (0.5-1.0); GFR > 60 ML/MIN (>=60 (CALC)); GFR FOR AFR.AMER. > 60 ML/MIN (>=60 (CALC)); POTASSIUM 4.2 mmol/l (3.5-5.1); SGOT/AST 41 u/l (9-36); SODIUM 130 mmol/l (137-146); TOTAL PROTEIN 7.9 g/dL (6.3-8.2)
--- NOTE | 2018-06-13 12:50 | NUR ---
PT RESTING ON STRETCHER, STATES NO COMPLAINTS AT THIS TIME.
[2018-06-13] MEDS ORDERED: MELOXICAM7.5 MG PO (13:12)
[2018-06-13] MEDS ORDERED: MUPIROCIN21 (13:13)
[2018-06-13] MEDS ORDERED: LEXAPRO10 MG PO (13:13)
[2018-06-13] MEDS ORDERED: XOPENEX HFA IN (13:14)
--- NOTE | 2018-06-13 13:50 | NUR ---
PT RESTING ON STRETCHER, NO COMPLAINTS STATED AT THIS TIME.
--- NOTE | 2018-06-13 14:20 | NUR ---
PT STATING SHES HAVING SOB- ASKED FOR A NEB TX
[2018-06-13 14:27] LABS: URINE BILIRUBIN - DIPSTICK NEGATIVE (NEGATIVE); URINE BLOOD DIPSTICK NEGATIVE (NEGATIVE); URINE COLOR YELLOW; URINE GLUCOSE - DIPSTICK NEGATIVE (NEGATIVE); URINE KETONE NEGATIVE (NEGATIVE); URINE LEUK ESTERASE NEGATIVE (NEGATIVE); URINE NITRITE - DIPSTICK NEGATIVE (Negative); URINE PROTEIN - DIPSTICK NEGATIVE (NEG-TRACE); URINE UROBILINOGEN - DIPSTICK 0.2 E.U./dL (0.2)
--- NOTE | 2018-06-13 14:40 | NUR ---
PT STATES BREATHING HAS IMPROVED- LUNGS SOUNDS CLEAR BILATERAL
--- NOTE | 2018-06-13 15:40 | NUR ---
MD AT BEDSIDE TO DISCUSS FINDINGS AND ADMISSION
--- NOTE | 2018-06-13 16:20 | NUR ---
REPORT ATTEMTPED TO MS2
--- NOTE | 2018-06-13 16:39 | NUR ---
FITO WATTERS CALLED FOR REPORT- ACCEPTED PT
--- NOTE | 2018-06-13 16:44 | NUR ---
PT ARRIVED TO FLOOR VIA STRETCHER IN STABLE CONDITION ACCOMPANIED BY ANI TAYLOR;PT ALERT AND ORIENTED X3,ORIENTED TO ROOM AND CALL LIGHT SYSTEM;PT AMBULATED WITH A WEAK GAIT AND 1 PERSON ASSIST TO STANDING SCALE AND BEDSIDE;WT AND VS OBTAINED, BP 195/79 HR 79, PT TO BE MEDICATED WITH SCHEDULED MEDICATION;PT REPORTS ABDOMINAL HERNIA MESH REMOVAL AND REPAIR ON 06/09/18 BY IN [facility];PT REPORTS ABDOMINAL PAIN TO BE A 4/10 ON THE PAIN SCALE,PAIN SCALE, REPORTING AND MED SCHEDULE EDUCATED;ASSESSMENT COMPLETED;RESPIRATIONS SHALLOW ON RA,CLEAR LUNG SOUNDS;ABDOMEN SOFT ON PALPATION AND HYPOACTIVE IN ALL 4 QUADRANTS, LAST BM 06/09/18 LACTULOSE TO BE PROVIDED;INCISIONAL AREA TO ABDOMEN TO BE WELL APPROX WITH DERMABOND INTACT;CHRISTIANO DRAIN NOTED TO LUQ DRAINING SANGUINEOUS FLUID,10ML EMPTIED FROM CHRISTIANO AT THIS TIME;WEAK PEDAL PULSES,SKIN INTACT;EMS # 20G TO LAC FLUSHED AND PATENT,SITE APPEARS HEALTHY;FRESH WATER AND ADDITIONAL BLANKETS PROVIDED;PT DENIES ANY ADDITIONAL NEEDS AT THIS TIME AND IS ENCOURAGED TO CALL FOR ASSISTANCE IF NEEDED;FALL PRECAUTIONS IN PLACE WITH BED IN THE LOWEST POSITION AND CALL LIGHT IN REACH;WILL CONTINUE TO MONITOR
[2018-06-13 16:50] VITALS: BP 195/79
--- NOTE | 2018-06-13 16:53 | NUR ---
Admission Note Report Given to: FITO WATTERS Transported by: Wheelchair X Stretcher Transported with: X Nurse Transporter X Patent IV O2 [employer] Librarian TRANSPORTED TO [facility] WITHOUT INCIDENT
--- NOTE | 2018-06-13 18:21 | NUR ---
PT RESTING AT BEDSIDE COMPLAINING OF SOB,HOB ELEVATED & O2 SATS OBTAINED RESULTING IN 99% ON RA;OXYGEN TO BE PROVIDED FOR COMFORT;PT MEDICATED WITH PRN LIBRIUM 25MG PO AT THIS TIME;WILL MONITOR FOR EFFECTIVENESS
[2018-06-13 18:24] VITALS: BP 200/89
--- NOTE | 2018-06-13 18:37 | NUR ---
PT MEDICATED WITH PRN LABETALOL 10MG IVP BY ANI ZAMORA FOR A BLOOD PRESSURE OF 200/89 HR 77.WILL CONTINUE TO MONITOR FOR EFFECTIVENESS
[2018-06-13 18:55] VITALS: BP 152/72
--- NOTE | 2018-06-13 20:10 | NUR ---
PATIENT RESTING IN BED AT THIS TIME-AWAKE ALERT AND ORIENTEDX3. PATIENT C/O FEELING ANXIOUS-WAS MEDICATED WITH LIBRIUM EARLIER. PATIENT WITH CHRISTIANO DRAIN INTACT TO LEFT ABD DRAINING SMALL AMT OF SERSANGUINOUS FLUID. ABD INCISION IS ROSAURA AND INTACT WITH DERMABOND. NO S/S OF INFECTION AT THIS TIME. PATIENT WITH NO BM SINCE SURGERY LAST WEDNESDAY. ABD IS SOFT WITH BS+. TAKING LACTULOSE ORDERED TID. ENCOURAGED PO FLUIDS AND HIGH FIBER DIET. PATIENT MEDICATED FOR ABD PAIN-4/10 ON PAIN SCALE WITH LORTAB ORDERED. SAFETY PRECAUTIONS REINFORCED. CALL LIGHT IN REACH, WILL CONT TO MONOITOR.
--- NOTE | 2018-06-13 20:45 | NUR ---
PT ASSISTED TO BSC AND BACK TO BED. 50CC OF CLEAR YELLOW URINE OUTPUT MEASURED. PT WAS STEADY W/STANDBY ASSIST, BUT WEAK. ADDITIONAL BLANKET PROVIDED AND ROOM TURNED WARMER/CO BEING COLD. DENIES ANY OTHER NEEDS, CALL LIGHT IS AT BEDSIDE. PT ASKED FOR LIGHTS OFF.
--- NOTE | 2018-06-13 21:23 | NUR ---
RESTING IN BED AT THIS TIME-STATES SOME RELIEF FROM PAIN MEDS. SEEMS LESS ANXIOUS AT THIS TIME. SAFETY PRECAUTIONS REINFORCED. CALL LIGHT IN REACH. WILL CONT TO MONITOR.
[2018-06-14 00:24] VITALS: BP 156/69
--- NOTE | 2018-06-14 00:30 | NUR ---
PATIENT VS TAKEN AND RECORDED. LIBRIUM 25MG PO GIVEN FOR ANXIETY. PATIENT ASSISTED TO BSC TO VOID AND THEN BACK TO BED. SAFETY PRECAUTIONS REINFORCED. CALL LIGHT IN REACH. WILL CONT TO MONITOR.
--- NOTE | 2018-06-14 02:40 | NUR ---
APPEARS SLEEPING AT THIS TIME WITH HOB SLIGHTLY ELEVATED AND EYES CLOSED. RESP ARE EVEN AND UNLABORED. CALL LIGHT IN REACH. WILL CONT TO MONITOR.
[2018-06-14 04:22] VITALS: BP 136/71
--- NOTE | 2018-06-14 04:37 | NUR ---
PATIENT RESTING IN BED-C/O ABD PAIN-6/10 ON PAIN SCALE. CHRISTIANO EMPTIED FOR 5CC OF SEROSANGUINOUS FLUID. SAFETY PRECAUTIONS REINFORCED. CALL LIGHT IN REACH.
[2018-06-14 05:38] LABS: HEMATOCRIT 37.4 % (37.0-47.0); HEMOGLOBIN 12.5 g/dl (12.0-16.0); IMMATURE GRANULOCYTES 0.5 % (0.0-5.0); MEAN CELL VOLUME 92.3 fL CALC (80.0-100.0); MEAN CORPUSCULAR HGB 30.9 pG CALC (26.0-32.0); MEAN CORPUSCULAR HGB CONC 33.4 g/L CALC (32.0-36.0); NEUT# 4.06 thou/uL (2.00-7.15); RED BLOOD COUNT 4.05 mill/uL (4.20-5.60); RED CELL DISTRI WIDTH 15.8 % (11.5-15.5)
[2018-06-14 05:48] LABS: ALBUMIN 4.1 g/dL (3.2-5.0); ALKALINE PHOSPHATASE 59 u/l (38-126); AMYLASE 34 u/l (30-110); ANION GAP 15 (6-22 (CALC)); BILIRUBIN, TOTAL 0.7 mg/dL (0.0-1.4); BUN 17 mg/dL (8-23); BUN/CREATININE RATIO 26 (12-20 (CALC)); CARBON DIOXIDE 26 mmol/l (22-30); CHLORIDE 95 mmol/l (95-108); CREATININE 0.6 mg/dL (0.5-1.0); GFR > 60 ML/MIN (>=60 (CALC)); GFR FOR AFR.AMER. > 60 ML/MIN (>=60 (CALC)); LIPASE 27 u/l (23-300); MAGNESIUM 1.3 mg/dL (1.6-2.3); POTASSIUM 3.8 mmol/l (3.5-5.1); SGOT/AST 22 u/l (9-36); SODIUM 133 mmol/l (137-146); TOTAL PROTEIN 6.7 g/dL (6.3-8.2)
--- NOTE | 2018-06-14 07:20 | NUR ---
REPORT RECEIVED FROM ANI MEJIA;PT OOB TO BEDSIDE COMMODE WITH TIFFANI BEE AT BEDSIDE;INTRODUCED SELF TO PT AND POC DISCUSSED;RESPIRATIONS EVEN AND UNLABORED ON RA;NO S/S OF DISTRESS NOTED;PT DENIES ANY CURRENT NEEDS AT THIS TIME;ENCOURAGED TO CALL FOR ASSISTANCE IF NEEDED;FALL PRECAUTIONS IN PLACE;CALL LIGHT IN REACH;WILL CONTINUE TO MONITOR
--- NOTE | 2018-06-14 08:40 | NUR ---
PT OOB RESTING IN RECLINER REPORTING EAGERNESS TO GO HOME,PT STATES "I HAVE A DR. GORET ON WEDNESDAY,I MEAN TOMORROW";VS OBTAINED AND ASSESSMENT COMPLETED;PT REPORTS PAIN TO ABDOMEN REQUESTING PAIN MEDICATION, PT RE-EDUCATED ON PAIN MEDICATION SCHEDULE AND VERBALIZES UNDERSTANDING;RESPIRATIONS EVEN AND UNLABORED,SHALLOW ON RA;WHEEZING NOTED;ABDOMEN SOFT ON PALPATION AND ACTIVE IN ALL 4 QUADRANTS;INCISIONAL AREA TO ABD WELL APPROX WITH DERMABOND INTACT;PT HAD AN ABDOMINAL HERNIA REPAIR ON 06/09/18.CHRISTIANO DRAIN PATENT DRAINING SMALL AMOUNTS OF SANGUINEOUS FLUID;STRONG PEDAL PULSES;EMS #20G TO LAC FLUSHED AND PATENT,PT EDUCATED ON IV SITE EXPIRATION DATE AND STATES "WE WILL SEE IF I GO HOME FIRST";LIBRIUM 25MG PO ADMINISTERED AT THIS TIME;LAST BM 06/09/18 LACTULOSE PROVIDED PER ORDER AND WARM PRUNE JUICE;PT DENIES ANY ADDITIONAL NEEDS AT THIS TIME AND IS ENCOURAGED TO CALL FOR ASSISTANCE IF NEEDED;CALL LIGHT IN REACH;WILL CONTINUE TO MONITOR
[2018-06-14 08:41] VITALS: BP 14/67; BP 147/67
--- NOTE | 2018-06-14 12:10 | NUR ---
PT OOB RESTING IN RECLINER EATING LUNCH;RESPIRATIONS EVEN AND UNLABORED ON RA;EMS IV SITE REMAINS PATENT TO LAC;PT DENIES ANY CURRENT NEEDS AT THIS TIME AND IS INSTRUCTED TO EXPRESS ANY NEEDS OR CONCERNS;FALL PRECAUTIONS IN PLACE WITH CALL LIGHT IN REACH;WILL CONTINUE TO MONITOR
--- NOTE | 2018-06-14 13:45 | NUR ---
AT BEDSIDE DISCUSSING POC INCLUDING D/C HOME.
[2018-06-14 15:10] VITALS: BP 152/75
--- NOTE | 2018-06-14 15:50 | NUR ---
PT OOB RESTING IN RECLINER,ANXIOUS TO GO HOME;RESPIRATIONS EVEN AND UNLABORED ON RA;PT DENIES ANY CURRENT NEEDS;SCHEDULED LACTULOSE REFUSED BY PATIENT;TELE MONITORING IN PLACE;AWAITING DISCHARGE ORDERS HOME;CALL LIGHT IN REACH;WILL CONTINUE TO MONITOR
--- NOTE | 2018-06-14 16:54 | NUR ---
ALL DISCHARGE INSTRUCTIONS PROVIDED AT THIS TIME,QUESTIONS ANSWERED;IV SITE REMOVED WITH CATHETER INTACT;PT CALLED [employer] FOR TRANSPORTATION HOME;PT DENIES ANY ADDITIONAL NEEDS;WHEELCHAIR TO BE PROVIDED FOR DISCHARGE HOME.
--- NOTE | 2018-06-14 16:55 | NUR ---
Discharge instructions given. Patient verbalizes understanding of same. Discharged in stable condition via Wheelchair to Home with *Other. All belongings sent with pt. Pt transported to [facility] via wheelchair accompanied by godfrey pruett in stable condition.[employer] is transporting pt home.
== END 2018-06-14 17:07 | disposition home or self-care (01) ==
LOC: ED 11:35 → ED-I 15:32 → ED 16:01 → MS2 16:02
PROVIDERS: Emergency Medicine; ADMIT Internal Medicine Nephrology; ATTEND Internal Medicine Nephrology
DX: I10 Essential (primary) hypertension (principal); K56.41 Fecal impaction; J44.9 Chronic obstructive pulmonary disease, unspecified; F17.210 Nicotine dependence, cigarettes, uncomplicated; F10.10 Alcohol abuse, uncomplicated; F41.1 Generalized anxiety disorder; F32.9 Major depressive disorder, single episode, unspecified; M19.90 Unspecified osteoarthritis, unspecified site; Z87.11 Personal history of peptic ulcer disease; Z98.890 Other specified postprocedural states; R53.1 Weakness
CPT/HCPCS: G0378

== ENCOUNTER 2018-08-14 15:55 | Emergency (ER) | payer MEDICARE, OTHER ==
[~2018-08-14] VITALS: Ht 152.4 cm; Wt 43.0 kg
[~2018-08-14 15:55] MED LIST changes: +LEXAPRO10 MG PO; +MELOXICAM7.5 MG PO; +MUPIROCIN21; +XOPENEX HFA IN
[2018-08-14 17:50] LABS: HEMOGLOBIN 12.7 g/dl (12.0-16.0); IMMATURE GRANULOCYTES 0.3 % (0.0-5.0); MEAN CELL VOLUME 91.8 fL CALC (80.0-100.0); MEAN CORPUSCULAR HGB 31.5 pG CALC (26.0-32.0); MEAN CORPUSCULAR HGB CONC 34.3 g/L CALC (32.0-36.0); NEUT# 5.18 thou/uL (2.00-7.15); RED BLOOD COUNT 4.03 mill/uL (4.20-5.60); RED CELL DISTRI WIDTH 15.2 % (11.5-15.5)
[2018-08-14 18:16] LABS: ALBUMIN 4.9 g/dL (3.2-5.0); ALKALINE PHOSPHATASE 78 u/l (38-126); BUN 21 mg/dL (8-23); BUN/CREATININE RATIO 32 (12-20 (CALC)); CHLORIDE 89 mmol/l (95-108); CREATININE 0.6 mg/dL (0.5-1.0); GFR > 60 ML/MIN (>=60 (CALC)); GFR FOR AFR.AMER. > 60 ML/MIN (>=60 (CALC)); SGOT/AST 21 u/l (9-36); SODIUM 131 mmol/l (137-146); TOTAL PROTEIN 7.6 g/dL (6.3-8.2)
[2018-08-14 18:17] LABS: ANION GAP 21 (6-22 (CALC)); BILIRUBIN, TOTAL 0.8 mg/dL (0.0-1.4); CARBON DIOXIDE 25 mmol/l (22-30); POTASSIUM 3.8 mmol/l (3.5-5.1)
[2018-08-14 18:37] LABS: URINE BILIRUBIN - DIPSTICK NEGATIVE (NEGATIVE); URINE BLOOD DIPSTICK SMALL (NEGATIVE); URINE COLOR YELLOW; URINE GLUCOSE - DIPSTICK NEGATIVE (NEGATIVE); URINE KETONE 15 mg/dL (NEGATIVE); URINE LEUK ESTERASE TRACE (NEGATIVE); URINE NITRITE - DIPSTICK NEGATIVE (Negative); URINE PROTEIN - DIPSTICK NEGATIVE (NEG-TRACE); URINE UROBILINOGEN - DIPSTICK 0.2 E.U./dL (0.2)
[2018-08-14 18:38] LABS: URINE SQUAMOUS EPITHELIAL CELL FEW EPI/hpf (0-FEW)
[2018-08-14 18:44] LABS: BARBITURATES NEGATIVE (NEGATIVE); COCAINE NEGATIVE (NEGATIVE); METHADONE NEGATIVE (NEGATIVE); OXCYCODONE POSITIVE (NEGATIVE); TETRAHYDROCANNABIONOL NEGATIVE (NEGATIVE); TRICYLIC ANTIDEPRESSANTS NEGATIVE (NEGATIVE)
[2018-08-15 03:00] VITALS: BP 144/65
== END 2018-08-15 03:00 | disposition left against medical advice (07) ==
LOC: ED 15:55 → ED-I 21:29 → ED 08-15 03:00
PROVIDERS: Emergency Medicine
DX: I16.0 Hypertensive urgency (principal); I50.9 Heart failure, unspecified; R06.02 Shortness of breath; R53.1 Weakness; D72.829 Elevated white blood cell count, unspecified; F17.210 Nicotine dependence, cigarettes, uncomplicated; Z91.19 Patient's noncompliance with other medical treatment and regimen
CPT/HCPCS: J2060

== ENCOUNTER 2018-10-14 18:27 | Emergency (ER) | payer MEDICARE, OTHER ==
[~2018-10-14] VITALS: Ht 152.4 cm; Wt 45.0 kg
[2018-10-14 19:18] LABS: HEMOGLOBIN 13.9 g/dl (12.0-16.0); IMMATURE GRANULOCYTES 0.3 % (0.0-5.0); MEAN CELL VOLUME 95.9 fL CALC (80.0-100.0); MEAN CORPUSCULAR HGB 33.3 pG CALC (26.0-32.0); MEAN CORPUSCULAR HGB CONC 34.8 g/L CALC (32.0-36.0); NEUT# 6.93 thou/uL (2.00-7.15); RED BLOOD COUNT 4.17 mill/uL (4.20-5.60); RED CELL DISTRI WIDTH 13.5 % (11.5-15.5)
[2018-10-14 19:33] LABS: URINE BILIRUBIN - DIPSTICK NEGATIVE (NEGATIVE); URINE BLOOD DIPSTICK NEGATIVE (NEGATIVE); URINE COLOR YELLOW; URINE GLUCOSE - DIPSTICK NEGATIVE (NEGATIVE); URINE KETONE 15 mg/dL (NEGATIVE); URINE LEUK ESTERASE NEGATIVE (NEGATIVE); URINE NITRITE - DIPSTICK NEGATIVE (Negative); URINE PROTEIN - DIPSTICK TRACE mg/dL (NEG-TRACE); URINE UROBILINOGEN - DIPSTICK 0.2 E.U./dL (0.2)
[2018-10-14 19:33] LABS: ALBUMIN 5.4 g/dL (3.2-5.0); ALKALINE PHOSPHATASE 72 u/l (38-126); ANION GAP 23 (6-22 (CALC)); BUN 23 mg/dL (8-23); BUN/CREATININE RATIO 29 (12-20 (CALC)); CARBON DIOXIDE 26 mmol/l (22-30); CHLORIDE 88 mmol/l (95-108); CREATININE 0.8 mg/dL (0.5-1.0); GFR > 60 ML/MIN (>=60 (CALC)); GFR FOR AFR.AMER. > 60 ML/MIN (>=60 (CALC)); POTASSIUM 4.7 mmol/l (3.5-5.1); SGOT/AST 26 u/l (9-36); SODIUM 132 mmol/l (137-146); TOTAL PROTEIN 8.3 g/dL (6.3-8.2)
[2018-10-14 19:34] LABS: BARBITURATES NEGATIVE (NEGATIVE); COCAINE NEGATIVE (NEGATIVE); METHADONE NEGATIVE (NEGATIVE); OXCYCODONE POSITIVE (NEGATIVE); TETRAHYDROCANNABIONOL NEGATIVE (NEGATIVE); TRICYLIC ANTIDEPRESSANTS NEGATIVE (NEGATIVE)
[2018-10-14 19:45] LABS: MYOGLOBIN 273 ng/mL (0 - 62)
--- NOTE | 2018-10-14 19:49 | NUR ---
BREATHING TREATMENT GIVEN. BREATHING TECH. FOR GOOD DEPOSITION TO THE LUNGS.
[2018-10-14] MEDS ORDERED: PREDNISONE50 MG PO (19:59)
[2018-10-14] MEDS ORDERED: DOXYCYCL HYC100 MG PO (19:59)
[2018-10-14 20:15] VITALS: BP 189/92
== END 2018-10-14 20:15 | disposition home or self-care (01) ==
LOC: ED 18:27
PROVIDERS: Emergency Medicine
DX: J44.1 Chronic obstructive pulmonary disease with (acute) exacerbation (principal); I10 Essential (primary) hypertension; F17.200 Nicotine dependence, unspecified, uncomplicated; F10.10 Alcohol abuse, uncomplicated; F19.10 Other psychoactive substance abuse, uncomplicated